=== PATIENT | male | born 1945 | race Caucasian/White ===

== ENCOUNTER 2018-07-01 09:16 | Emergency (ER) | payer BC ==
[2018-07-01] MEDS ORDERED: Famotidine TAB* 20 MG PO ONE (09:43)
--- NOTE | 2018-07-01 10:04 | ED ---
Abdominal Pain/Male - HPI Summary HPI Summary: Pt is a 72 y/o male who presents to the ED c/o abdominal pain. He c/o abdominal pain and upper abdominal bloating. The pain is described as discomfort and is rated a 2/10 in severity. He denies any back pain, N/V/D, constipation, or urinary retention. Pt has a hx of HTN and AFib, and states that his BP at home was 184/82. His BP normally is about 135/70. Pt denies any prior abdominal surgeries. FHx HTN. Pt is not Coumadin. - History of Current Complaint Chief Complaint: EDHypertension Stated Complaint: BLOATED/UPPER ABD PROBLEMS/HIGH BP PER PT Time Seen by Provider: 07/01/18 09:43 Hx Obtained From: Patient Onset/Duration: Gradual Onset, Still Present Timing: Constant Severity Currently: Mild Pain Intensity: 2 Pain Scale Used: 0-10 Numeric Location: Other - upper abdomen Radiates: No Character: Other: - discomfort Associated Signs And Symptoms: Positive: Other - bloating. Negative: Back Pain , Constipation, Urinary Symptoms, Nausea, Vomiting, Diarrhea - Allergies/Home Medications Allergies/Adverse Reactions: Allergies Allergy/AdvReac Type Severity Reaction Status Date / Time No Known Allergies Allergy Verified 07/01/18 09:22 PMH/Surg Hx/FS Hx/Imm Hx Cardiovascular History: Reports: Hx Atrial Fibrillation, Hx Hypertension Respiratory History: Denies: Hx Asthma GI History: Reports: Hx Gastroesophageal Reflux Disease Musculoskeletal History: Reports: Hx Gout Neurological History: Denies: Hx Seizures Infectious Disease History: No Infectious Disease History: Denies: Traveled Outside the [place] in Last 30 Days - Family History Known Family History: Positive: Cardiac Disease - [place] - father 72 y/o, Hypertension - Social History Alcohol Use: None Hx Substance Use: No Substance Use Type: Reports: None Hx Tobacco Use: No Smoking Status (MU): Never Smoked Tobacco Review of Systems Positive: Abdominal Pain, Other - upper abdominal bloating, NEGATIVE: constipation. 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 Head/face: normal Eyes: EOMI, IBETH ENT: mucous membranes moist Neck: supple, non-tender Respiratory: CTA, breath sounds present Cardiovascular: RRR, pulses symmetrical Abdomen: no RUQ tenderness, mild-moderate LLQ tenderness, soft, negative Taylor s sign, negative sonographic [place] sign Bowel Sounds: present Musculoskeletal: normal, strength/ROM intact Neuro: normal, sensory motor intact, A&Ox3 Triage Information Reviewed: Yes Vital Signs On Initial Exam: Initial Vitals Temp Pulse Resp BP Pulse Ox 97.8 F 50 18 181/74 97 07/01/18 09:21 07/01/18 09:21 07/01/18 09:21 07/01/18 09:21 07/01/18 09:21 Vital Signs Reviewed: Yes Diagnostics - Vital Signs Vital Signs Temp Pulse Resp BP Pulse Ox 07/01/18 09:21 97.8 F 50 18 181/74 97 - Laboratory Result Diagrams: 07/01/18 10:18 07/01/18 10:18 Lab Statement: Any lab studies that have been ordered have been reviewed, and results considered in the medical decision making process. - CT CT A/P CT Interpretation Completed By: Radiologist Summary of CT Findings: Potential stones or sludge at the gallbladder without additional CT abnormality of the gallbladder. Correlate with clinical assessment and consider ultrasound for further evaluation if deemed appropriate. Small nonobstructing stone midpole RIGHT kidney. Colonic diverticulosis without findings of acute diverticulitis. Normal appendix documented. Negative for ascites. ED physician reviewed radiology report. - Ultrasound No standard instances Ultrasound Interpretation Completed By: ED Physician Summary of Ultrasound Findings: US performed at bedside by ED physician: limited abdominal US, no AAA, positive gallstones, negative sonographic Taylor' s sign, no hydronephrosis - EKG 9:46 Cardiac Rate: Bradycardia - 50 bpm EKG Rhythm: Sinus Bradycardia ST Segment: Normal Summary of EKG Findings: Nl axis, nl intervals Re-Evaluation - Re-Evaluation First Eval Re-Evaluation Time: 11:11 Change: Improved Comment: Discussed CT results and plan of care. Pt feels fine. His systolic BP is now in the 150s. Abdominal Pain Male Course/Dx - Course Course Of Treatment: Patient with diffuse mild bloating feeling and some left lower quadrant pain. CT is negative for any acute pathology. Blood pressure had been elevated on arrival and came down into the 150s without treatment. He is feeling better here and be discharged to follow up closely with his primary care physician. - Diagnoses Differential Diagnosis/HQI/PQRI: ACS, Appendicitis, Bowel Obstruction, Constipation, Diverticulitis, Gall Bladder Disease, Renal Colic, Ureteral Stone Provider Diagnoses: Abdominal pain, Elevated blood pressure reading Discharge - Sign-Out/Discharge Documenting (check all that apply): Patient Departure - Discharge Patient Received Moderate/Deep Sedation with Procedure: No - Discharge Plan Condition: Improved Disposition: HOME Prescriptions: Dicyclomine CAP* [Bentyl CAP*] 10 mg PO TID PRN #30 cap PRN Reason: abdominal cramping Patient Education Materials: Acute Abdominal Pain (ED), Gas and Bloating (ED) Referrals: Otto Gomez MD [Primary Care Provider] - Additional Instructions: Take MiraLAX as needed for bloating. Return with fever, increased pain, new symptoms, worse or other concerns. Follow-up with your doctor for abdominal pain and also for recheck of blood pressure. - Billing Disposition and Condition Condition: IMPROVED Disposition: Home - Attestation Statements Document Initiated by Scribe: Yes Documenting Scribe: Susan Kelly Provider For Whom Scribe is Documenting (Include Credential): David John MD Scribe Attestation: Susan Walden, scribed for David John MD on 07/01/18 at 1806. Scribe Documentation Reviewed: Yes Provider Attestation: The documentation as recorded by the Susan cabrera accurately reflects the service I personally performed and the decisions made by me, David John MD Status of Scribe Document: Viewed
[2018-07-01] MEDS ORDERED: NS 0.9% 1000 ML** 1,000 ML IV ONE (10:11)
[2018-07-01] MEDS ORDERED: Morphine 4 MG/ML VIAL (1 ml) 4 MG/ML VIAL IV ONE (10:12)
[2018-07-01 10:25] LABS: ABS Basophils 0 10^3/ul (0-0.2); ABS Eosinophils 0.1 10^3/ul (0-0.6); ABS Lymphocytes 0.7 10^3/ul (1.0-4.8); ABS Monocytes 0.4 10^3/ul (0-0.8); ABS Neutrophils 8.9 10^3/ul (1.5-7.7); ABS Nucleated RBC 0 10^3/ul; Eosinophil % 1.4 %; Hematocrit 45 % (36-46); Hemoglobin 15.3 g/dL (14.0-18.0); Lymphocyte % 6.9 %; Mean Corpuscular HGB Conc 34 g/dL (31-36); Mean Corpuscular Hemoglobin 30 pg (27-31); Mean Corpuscular Volume 88 fL (80-94); Mean Platelet Volume 6.8 fL (7.4-10.4); Nucleated Red Blood Cells % 0.1; Platelet Count 163 10^3/uL (150-450); Red Blood Count 5.09 10^6 /uL (4.18-5.48); Red Cell Distribution Width 15 % (10.5-15); White Blood Count 10.2 10^3/uL (3.5-10.8)
[2018-07-01 10:31] LABS: INR 3.09 (0.82-1.09)
[2018-07-01 10:42] LABS: Albumin 4.2 g/dL (3.2-5.2); Albumin/Globulin Ratio 1.6 (1-3); BUN/Creatinine Ratio 18.8 (8-20); Calcium 9.7 mg/dL (8.6-10.3); EGFR African American 93.4 (>60); EGFR Non-African American 77.2 (>60); Globulin 2.7 g/dL (2-4); Potassium 4.2 mmol/L (3.5-5.0); Total Protein 6.9 g/dL (6.4-8.9)
[2018-07-01 11:57] VITALS: BP 162/80
== END 2018-07-01 11:55 | disposition home or self-care (01) ==
LOC: ED 09:16
DX: R10.9 Unspecified abdominal pain (principal); K21.9 Gastro-esophageal reflux disease without esophagitis; I10 Essential (primary) hypertension; I48.91 Unspecified atrial fibrillation
CPT/HCPCS: 36415; 74176; 80053; 83605; 83690; 85025; 85610; 86140; 93005; 96361; 96374; 99283; A9270-GY; J2270

== ENCOUNTER 2018-09-03 07:30 | Inpatient (IN) | payer BC ==
[2018-09-18] MEDS ORDERED: Buffered Lidocaine 1% SYRIN* 1 ML/SYRINGE INTRADERM ONE (13:59)
[2018-09-19] MEDS ORDERED: Lactated Ringers 1000 ML Bag* 1,000 ML IV SCH ×2 (06:00→13:00)
[2018-09-19] MEDS ORDERED: Gabapentin CAP(*) 300 MG PO ONE (06:00)
[2018-09-19] MEDS ORDERED: Acetaminophen TAB* 325 MG PO ONE (06:00)
--- OUTSIDE RECORDS SUMMARY | 2018-09-19 06:44 | XMS REPORT | Continuity of Care Document ---
:1945 External Reference #:[id number] Author Name Patience Fernández Care Team Providers Name Role Phone Lan Gomez M.D. Primary Care Physician Unavailable Payers Date Identification Numbers Payment Provider Subscriber Effective: 2012 Policy Number: [id number] [facility] Elzbieta Silva PayID: [id number] [address] [place] [address] Problems Active Problems Provider Date Essential hypertension Natalie Merritt M.D. Onset: 12/31/2012 Atrial fibrillation Natalie Merritt M.D. Onset: 12/31/2012 Palpitations Natalie Merritt M.D. Onset: 12/31/2012 Abnormal results of cardiovascular function Natalie Merritt M.D. Onset: 2013 studies Obesity NADIA Abrams Onset: 07/29/2013 Hyperlipidemia Natalie Merritt M.D. Onset: 06/22/2014 Persistent atrial fibrillation Natalie Merritt M.D. Onset: 12/22/2014 Idiopathic gout, unspecified site Natalie Merritt M.D. Onset: 03/14/2015 Other cardiomyopathies Natalie Merritt M.D. Onset: 03/14/2015 Disturbance in sleep behavior Jada Pierce MD Onset: 04/06/2015 Obstructive sleep apnea syndrome Jada Pierce MD Onset: 05/26/2015 Paroxysmal atrial fibrillation Natalie Merritt M.D. Onset: 07/11/2015 Body mass index 30+ - obesity Natalie Merritt M.D. Onset: 07/11/2015 Localized, primary osteoarthritis of the Rashad F MD Suzy Onset: 2018 pelvic region and thigh Aneurysm of thoracic aorta Natalie Merritt M.D. Onset: 08/09/2017 Family History Date Family Member(s) Observation Comments General [place] Father [place] age 72 Mother Alive at age 94 Siblings 4 Sister w/DM Social History Type Date Description Comments Sex Unknown Marital Status Lives With Occupation Medically Retired Tobacco Use Start: Unknown Never Smoked Cigarettes Smoking Status Reviewed: 08/28/18 Never Smoked Cigarettes ETOH Use Denies alcohol use Tobacco Use Start: Unknown Patient has never smoked Recreational Drug Use Denies Drug Use Exercise Type/Frequency Exercises regularly house work indoor- outdoor Allergies, Adverse Reactions, Alerts Description No Known Drug Allergies Medications Active Medications SIG Qnty Indications Ordering Date Provider Amiodarone HCL take 1 tablet by 90tabs I48.0 Natalie Merritt, 03/25/2018 100mg mouth daily M.D. Tablets Diltiazem HCL ER 1 by mouth every day 90caps I48.0 Natalie Merritt, 2016 Coated Beads as directed by md Henry 120mg Caps ER 24HR Carvedilol 1 by mouth twice a 180tabs Natalie Merritt, 04/02/2012 25mg Tablets day M.D. Furosemide 1 by mouth every 45tabs Natalie Merritt, 02/04/2012 20mg Tablets over day alternating M.D. with spironolactone Spironolactone 1 tab by mouth every 45tabs Natalie Merritt, 01/07/2012 25mg other day M.D. Tablets alternating with furosemide Tadalafil 1/2 or 1 tab as Unknown 20mg Tablets needed Pravastatin Sodium 1 by mouth every day Unknown 20mg Tablets Colchicine 1 by mouth every day Unknown 0.6mg or as needed Capsules Allopurinol 1 by mouth every day Unknown 300mg Tablets Acetaminophen 2 tablets by mouth Unknown 325mg every 6 hours as Tablets needed for pain/fever Glucosamine Sulfate 1 tablet po b.i.d Unknown 1000mg Tablets Coumadin as directed Taking 200tabs Lan Gomez, 1mg Tablets 4 mg 6 days per week M.D. and 3mg 1 day per week adjustment Dr. Gomez Aspirin 81 po qd Unknown 81mg Tablets DR History Medications Amiodarone HCL 1/2 tab by 45tabs I48.0 Natalie Merritt, 08/23/2016 - 200mg mouth every M.D. 03/25/2018 Tablets day. Multaq 1 by mouth 60tabs I48.0 Natalie Merritt, 08/03/2016 - 400mg Tablets twice a day M.D. 08/23/2016 Amlodipine Besylate 1 by mouth 90tabs I10 Natalie Merritt, 06/26/2013 - every day PT Is M.D. 08/03/2016 2.5mg Tablets Not Taking 08/23/16 Propafenone HCL ER 1 by mouth 270caps Natalie Merritt, 06/08/2013 - three times a M.D. 12/22/2014 225mg Caps ER 12HR day Propafenone HCL 1 po tid 270tabs Natalie Merritt, 07/23/2012 - 150mg M.D. 06/08/2013 Tablets Amlodipine Besylate 1 po qd 90tabs Natalie Merritt, 04/02/2012 - M.D. 12/31/2012 5mg Tablets Multaq 1 po bid 180tabs Natalie Merritt, 03/11/2012 - 400mg Tablets M.D. 07/23/2012 Carvedilol 1 po bid 180tabs Natalie Merritt, 02/04/2012 - 12.5mg M.D. 04/02/2012 Tablets Diovan 1 po qd 90tabs Natalie Merritt, 02/04/2012 - 160mg Tablets M.D. 12/31/2012 Amlodipine Besylate 1 po qd 90tabs Natalie Merritt, 01/07/2012 - M.D. 04/02/2012 10mg Tablets Colcrys 1 by mouth Unknown - 0.6mg Tablets every day prn 07/10/2015 for gout Amiodarone HCL 1/2 tablet po Ezequiel Machado, - 200mg daily, Pt is 07/17/2015 Tablets taking a whole 100 mg tablet Medications Administered in Office Medication SIG Qnty Indications Ordering Provider Date Inj, Regadenoson, 0.1 MG Natalie Merritt M.D. 06/16/2013 Injection Technetium TC 99M Tetrofosmin, Per Natalie Merritt M.D. 06/16/2013 Unit Dose Up To 40 Millicuries Injection Immunizations CPT Code Status Date Vaccine Lot # [id number] Given 04/06/2015 Fluvirin Im 3Yrs And Older Vital Signs Date Vital Result Comment 08/28/2018 12:47pm Height 66 inches 5'6" Weight 218.00 lb w/ shoes Heart Rate 58 /min BP Systolic Sitting 140 mmHg Rue reg cuff BP Diastolic Sitting 78 mmHg Rue reg cuff BMI (Body Mass Index) 35.2 kg/m2 08/14/2018 9:22am Height 66 inches 5'6" Weight 219.50 lb Heart Rate 72 /min BP Systolic 124 mmHg BP Diastolic 74 mmHg Respiratory Rate 12 /min Pain Level 8 BMI (Body Mass Index) 35.4 kg/m2 03/25/2018 8:37am Height 66 inches 5'6" Weight 221.00 lb Heart Rate 52 /min BP Systolic 130 mmHg Lue reg cuff sitting BP Diastolic 85 mmHg Lue reg cuff sitting BP Systolic Standing 120 mmHg Lue reg cuff BP Diastolic Standing 85 mmHg Lue reg cuff Respiratory Rate 17 /min O2 % BldC Oximetry 98 % BMI (Body Mass Index) 35.7 kg/m2 08/09/2017 7:59am Height 66 inches 5'6" Weight 218.00 lb with shoes Heart Rate 50 /min BP Systolic Sitting 100 mmHg Lue lg cuff BP Diastolic Sitting 70 mmHg Lue lg cuff BP Systolic Standing 118 mmHg Lue lg cuff BP Diastolic Standing 78 mmHg Lue lg cuff Respiratory Rate 16 /min O2 % BldC Oximetry 97 % at room air BMI (Body Mass Index) 35.2 kg/m2 Ejection Fraction 55-60% date 04/13/15 ECHO 12/25/2016 2:45pm Height 66 inches 5'6" Weight 214.50 lb with shoes Heart Rate 54 /min BP Systolic Sitting 120 mmHg rue reg cuff BP Diastolic Sitting 74 mmHg rue reg cuff BP Systolic Standing 130 mmHg rue reg cuff BP Diastolic Standing 70 mmHg rue reg cuff Respiratory Rate 16 /min BMI (Body Mass Index) 34.6 kg/m2 Ejection Fraction 55-60% date 04/13/15 echo 10/09/2016 9:18am Height 66 inches 5'6" Weight 219.00 lb with shoes Heart Rate 56 /min BP Systolic Sitting 110 mmHg Rue lg cuff BP Diastolic Sitting 64 mmHg Rue lg cuff BP Systolic Standing 120 mmHg Rue lg cuff BP Diastolic Standing 70 mmHg Rue lg cuff Respiratory Rate 17 /min BMI (Body Mass Index) 35.3 kg/m2 Ejection Fraction 55-60% 04/13/2015-echo 08/23/2016 8:00am Height 66 inches 5'6" Weight 215.00 lb w/ shoes Heart Rate 72 /min BP Systolic Sitting 100 mmHg Lue, lg cuff BP Diastolic Sitting 70 mmHg Lue, lg cuff BP Systolic Standing 94 mmHg Lue BP Diastolic Standing 74 mmHg Lue Respiratory Rate 16 /min BMI (Body Mass Index) 34.7 kg/m2 Ejection Fraction 55-60% as of 04/2015 echo 08/03/2016 10:53am Height 66 inches 5'6" Weight 216.50 lb with shoes Heart Rate 160 /min BP Systolic Sitting 132 mmHg LA reg cuff BP Diastolic Sitting 88 mmHg LA reg cuff BP Systolic Standing 128 mmHg LA reg cuff BP Diastolic Standing 86 mmHg LA reg cuff BMI (Body Mass Index) 34.9 kg/m2 Ejection Fraction 55% - 60% echo 04/13/15 04/10/2016 10:42am Height 66 inches 5'6" Weight 216.00 lb w/o shoes BP Systolic Sitting 130 mmHg Rue, reg cuff BP Diastolic Sitting 84 mmHg Rue, reg cuff BP Systolic Standing 124 mmHg Rue BP Diastolic Standing 76 mmHg Rue Respiratory Rate 16 /min BMI (Body Mass Index) 34.9 kg/m2 Ejection Fraction 55-60% as of 04/13/15 echo 10/17/2015 8:36am Height 66 inches 5'6" Weight 215.00 lb w/ shoes Heart Rate 56 /min BP Systolic Sitting 132 mmHg Rue, reg cuff BP Diastolic Sitting 80 mmHg Rue, reg cuff BP Systolic Standing 140 mmHg Rue BP Diastolic Standing 86 mmHg Rue Respiratory Rate 16 /min BMI (Body Mass Index) 34.7 kg/m2 Ejection Fraction 55-60% as of 04/13/15 echo 07/11/2015 7:58am Height 66 inches 5'6" Weight 213.00 lb Heart Rate 64 /min BP Systolic Sitting 132 mmHg Ra lrg cuff BP Diastolic Sitting 70 mmHg Ra lrg cuff BP Systolic Standing 136 mmHg Ra lrg cuff BP Diastolic Standing 72 mmHg Ra lrg cuff Respiratory Rate 15 /min BMI (Body Mass Index) 34.4 kg/m2 Ejection Fraction 55-60% 04/13/15 05/26/2015 8:39am Height 66 inches 5'6" Weight 210.00 lb Heart Rate 48 /min BP Systolic 138 mmHg BP Diastolic 88 mmHg O2 % BldC Oximetry 97 % BMI (Body Mass Index) 33.9 kg/m2 04/06/2015 10:38am Height 66 inches 5'6" Weight 210.00 lb Heart Rate 55 /min BP Systolic Sitting 148 mmHg BP Diastolic Sitting 90 mmHg Respiratory Rate 22 /min O2 % BldC Oximetry 97 % BMI (Body Mass Index) 33.9 kg/m2 Neck Circumference in inches 18 03/14/2015 9:52am Height 66 inches 5'6" Weight 208.00 lb without shoes Heart Rate 60 /min BP Systolic 156 mmHg L arm reg cuff BP Diastolic 90 mmHg L arm reg cuff BP Systolic Sitting 156 mmHg BP Diastolic Sitting 90 mmHg BP Systolic Standing 148 mmHg BP Diastolic Standing 86 mmHg Respiratory Rate 18 /min BMI (Body Mass Index) 33.6 kg/m2 Ejection Fraction 30-35% 12/1602/04/2015 10:48am Height 66 inches 5'6" Weight 214.00 lb with shoes Heart Rate 48 /min BP Systolic Sitting 122 mmHg LA lg cuff BP Diastolic Sitting 84 mmHg LA lg cuff BP Systolic Standing 130 mmHg LA lg cuff BP Diastolic Standing 78 mmHg LA lg cuff Respiratory Rate 16 /min BMI (Body Mass Index) 34.5 kg/m2 Ejection Fraction 50% date 02/03/14 ECHO 01/05/2015 3:37pm Height 66 inches 5'6" Weight 214.00 lb Heart Rate 60 /min BP Systolic Sitting 132 mmHg LA large cuff BP Diastolic Sitting 72 mmHg LA large cuff BP Systolic Standing 128 mmHg LA BP Diastolic Standing 80 mmHg LA Respiratory Rate 14 /min BMI (Body Mass Index) 34.5 kg/m2 12/22/2014 1:57pm Height 66 inches 5'6" Weight 211.00 lb Heart Rate 88 /min irregular BP Systolic Sitting 136 mmHg LA large cuff BP Diastolic Sitting 88 mmHg LA large cuff BP Systolic Standing 128 mmHg LA BP Diastolic Standing 86 mmHg LA Respiratory Rate 18 /min BMI (Body Mass Index) 34.1 kg/m2 Ejection Fraction 50% 02/03/14 12/21/2014 11:50am Height 66 inches 5'6" Heart Rate 112 /min BP Systolic Sitting 122 mmHg R arm reg cuff BP Diastolic Sitting 80 mmHg R arm reg cuff BP Systolic Standing 118 mmHg BP Diastolic Standing 70 mmHg Respiratory Rate 18 /min 12/14/2014 10:23am Height 66 inches 5'6" Weight 213.56 lb without shoes Heart Rate 100 /min irreg BP Systolic Sitting 110 mmHg Ra reg cuff BP Diastolic Sitting 80 mmHg Ra reg cuff BP Systolic Standing 112 mmHg Ra reg cuff BP Diastolic Standing 82 mmHg Ra reg cuff Respiratory Rate 18 /min BMI (Body Mass Index) 34.5 kg/m2 Ejection Fraction 50% date 02/03/14 ECHO 12/14/2014 10:16am Height 66 inches 5'6" 06/22/2014 8:39am Height 66 inches 5'6" Weight 201.00 lb w/o shoes Heart Rate 54 /min reg BP Systolic Sitting 132 mmHg Ra, reg cuff BP Diastolic Sitting 72 mmHg Ra, reg cuff BP Systolic Standing 124 mmHg Ra BP Diastolic Standing 70 mmHg Ra Respiratory Rate 18 /min BMI (Body Mass Index) 32.4 kg/m2 02/19/2014 8:47am Height 66 inches 5'6" Weight 214.00 lb with shoes Heart Rate 51 /min BP Systolic Sitting 132 mmHg LA, reg cuff BP Diastolic Sitting 84 mmHg LA, reg cuff BP Systolic Standing 126 mmHg LA BP Diastolic Standing 82 mmHg LA Respiratory Rate 16 /min BMI (Body Mass Index) 34.5 kg/m2 02/01/2014 8:21am Height 66 inches 5'6" Weight 218.00 lb with shoes Heart Rate 68 /min irregular BP Systolic Sitting 122 mmHg right arm reg cuff BP Diastolic Sitting 76 mmHg right arm reg cuff BP Systolic Standing 124 mmHg right arm reg cuff BP Diastolic Standing 78 mmHg right arm reg cuff Respiratory Rate 18 /min BMI (Body Mass Index) 35.2 kg/m2 07/29/2013 8:28am Height 66 inches 5'6" Weight 218.00 lb Without shoes Heart Rate 62 /min BP Systolic Sitting 134 mmHg R arm , Large cuff BP Diastolic Sitting 82 mmHg R arm , Large cuff BP Systolic Standing 128 mmHg BP Diastolic Standing 80 mmHg Respiratory Rate 18 /min BMI (Body Mass Index) 35.2 kg/m2 06/26/2013 9:22am Height 66 inches 5'6" Weight 216.00 lb Heart Rate 64 /min BP Systolic Sitting 152 mmHg LA reg cuff BP Diastolic Sitting 90 mmHg LA reg cuff BP Systolic Standing 144 mmHg LA BP Diastolic Standing 88 mmHg LA Respiratory Rate 18 /min BMI (Body Mass Index) 34.9 kg/m2 06/08/2013 8:54am Height 66 inches 5'6" Weight 215.00 lb Heart Rate 60 /min BP Systolic Sitting 146 mmHg LA large cuff BP Diastolic Sitting 88 mmHg LA large cuff BP Systolic Standing 144 mmHg LA BP Diastolic Standing 90 mmHg LA Respiratory Rate 16 /min BMI (Body Mass Index) 34.7 kg/m2 12/31/2012 9:58am Height 66.5 inches 5'6.50" Weight 218.00 lb Heart Rate 60 /min BP Systolic Sitting 152 mmHg Ra reg cuff BP Diastolic Sitting 88 mmHg Ra reg cuff BP Systolic Standing 142 mmHg Ra BP Diastolic Standing 82 mmHg Ra BMI (Body Mass Index) 34.7 kg/m2 Results Test Date Facility Test Result H/L Range Note CBC Auto Diff 07/31/2018 [facility] White Blood 6.4 10^3/uL N 3.5-10.[address] [place] [address] [phone] Red Blood Count 5.15 10^6/uL N 4.18-5.48 Hemoglobin 15.2 g/dL N 14.0-18.0 Hematocrit 45 % N 42-52 Mean Corpuscular Volume 88 fL N 80-94 Mean Corpuscular Hemoglobin 30 pg N 27-31 Mean Corpuscular HGB Conc 34 g/dL N 31-36 Red Cell Distribution Width 15 % N 10.5-15 Platelet Count 161 10^3/uL N 150-450 Mean Platelet Volume 7.7 fL N 7.4-10.4 Abs Neutrophils 4.2 10^3/uL N 1.5-7.7 Abs Lymphocytes 1.3 10^3/uL N 1.0-4.8 Abs Monocytes 0.4 10^3/uL N 0-0.8 Abs Eosinophils 0.4 10^3/uL N 0-0.6 Abs Basophils 0.1 10^3/uL N 0-0.2 Abs Nucleated RBC 0.0 10^3/uL Granulocyte % 65.3 % Lymphocyte % 20.9 % Monocyte % 7.0 % Eosinophil % 6.0 % Basophil % 0.8 % Nucleated Red Blood Cells % 0.1 Comp Metabolic Panel 07/31/2018 [facility] Sodium 138 mmol/L N 135-145 [address] [place] [address] [phone] Potassium 5.0 mmol/L N 3.5-5.0 Chloride 103 mmol/L N 101-111 Co2 Carbon Dioxide 29 mmol/L N 22-32 Anion Gap 6 mmol/L N 2-11 Glucose 102 mg/dL High 70-100 Blood Urea Nitrogen 21 mg/dL N 6-24 Creatinine 0.98 mg/dL N 0.67-1.17 BUN/Creatinine Ratio 21.4 High 8-20 Calcium 9.3 mg/dL N 8.6-10.3 Total Protein 6.6 g/dL N 6.4-8.9 Albumin 4.2 g/dL N 3.2-5.2 Globulin 2.4 g/dL N 2-4 Albumin/Globulin Ratio 1.8 N 1-3 Total Bilirubin 0.90 mg/dL N 0.2-1.0 Alkaline Phosphatase 85 U/L N 34-104 Alt 20 U/L N 7-52 Ast 18 U/L N 13-39 Egfr Non- 75.2 >60 Egfr 91.0 >60 1 Lipid Profile 07/31/2018 [facility] Triglycerides 179 mg/dL 2 (Trig/Chol/HDL) [address] [place] [address] [phone] Cholesterol 239 mg/dL 3 HDL Cholesterol 36.5 mg/dL 4 LDL Cholesterol 167 mg/dL 5 Laboratory test 07/31/2018 [facility] Uric Acid 4.9 mg/dL N 4.4-7.6 6 finding [address] [place] [address] [phone] TSH (Thyroid Stim Horm) 3.25 mcIU/mL N 0.34-5.60 7 Comp Metabolic Panel 05/15/2018 [facility] Sodium 138 mmol/L N 135-145 [address] [place] [address] [phone] Potassium 4.5 mmol/L N 3.5-5.0 Chloride 103 mmol/L N 101-111 Co2 Carbon Dioxide 30 mmol/L N 22-32 Anion Gap 5 mmol/L N 2-11 Glucose 97 mg/dL N 70-100 Blood Urea Nitrogen 18 mg/dL N 6-24 Creatinine 0.97 mg/dL N 0.67-1.17 BUN/Creatinine Ratio 18.6 N 8-20 Calcium 8.9 mg/dL N 8.6-10.3 Total Protein 6.3 g/dL Low 6.4-8.9 Albumin 4.2 g/dL N 3.2-5.2 Globulin 2.1 g/dL N 2-4 Albumin/Globulin Ratio 2.0 N 1-3 Total Bilirubin 0.90 mg/dL N 0.2-1.0 Alkaline Phosphatase 72 U/L N 34-104 Alt 16 U/L N 7-52 Ast 16 U/L N 13-39 Egfr Non- 76.3 >60 Egfr 92.3 >60 8 Thyroid Panel 05/15/2018 [facility] Free T4 1.10 ng/dL N 0.61- 1.12 [address] [place] [address] [phone] Thyroxine 11.58 g/dL N 6.09-12.23 TSH (Thyroid Stimulating Horm) 2.78 mcIU/mL N 0.34-5.60 Comp Metabolic Panel 10/21/2017 [facility] Sodium 142 mmol/L N 135-145 [address] [place] [address] [phone] Potassium 4.8 mmol/L N 3.5-5.0 Chloride 106 mmol/L N 101-111 Co2 Carbon Dioxide 30 mmol/L N 22-32 Anion Gap 6 mmol/L N 2-11 Glucose 117 mg/dL High 70-100 Blood Urea Nitrogen 21 mg/dL N 6-24 Creatinine 0.92 mg/dL N 0.67-1.17 BUN/Creatinine Ratio 22.8 High 8-20 Calcium 9.1 mg/dL N 8.6-10.3 Total Protein 6.3 g/dL Low 6.4-8.9 Albumin 4.0 g/dL N 3.2-5.2 Globulin 2.3 g/dL N 2-4 Albumin/Globulin Ratio 1.7 N 1-3 Total Bilirubin 1.10 mg/dL High 0.2-1.0 Alkaline Phosphatase 71 U/L N 34-104 Alt 16 U/L N 7-52 Ast 15 U/L N 13-39 Egfr Non- 81.1 >60 Egfr 98.1 >60 9 Laboratory test 10/21/2017 [facility] Thyroxine 11.93 g/mL N 6.09-12.[address] [place] [address] [phone] TSH (Thyroid Stim Horm) 3.37 mcIU/mL N 0.34-5.60 11 Free T4 (Free Thyroxine) 1.18 ng/dL High 0.61-1.12 12 CBC Auto Diff 05/29/2017 [facility] White Blood 7.2 10^3/uL N 3.5-10.[address] [place] [address] [phone] Red Blood Count 5.09 10^6/uL N 4.0-5.4 Hemoglobin 15.4 g/dL N 14.0-18.0 Hematocrit 46 % N 42-52 Mean Corpuscular Volume 91 fL N 80-94 Mean Corpuscular Hemoglobin 30 pg N 27-31 Mean Corpuscular HGB Conc 34 g/dL N 31-36 Red Cell Distribution Width 15 % N 10.5-15 Platelet Count 178 10^3/uL N 150-450 Mean Platelet Volume 8.0 um3 N 7.4-10.4 Abs Neutrophils 5.7 10^3/uL N 1.5-7.7 Abs Lymphocytes 0.9 10^3/uL Low 1.0-4.8 Abs Monocytes 0.4 10^3/uL N 0-0.8 Abs Eosinophils 0.2 10^3/uL N 0-0.6 Abs Basophils 0 10^3/uL N 0-0.2 Abs Nucleated RBC 0 10^3/uL Granulocyte % 78.3 % N 38-83 Lymphocyte % 12.8 % Low 25-47 Monocyte % 5.4 % N 0-7 Eosinophil % 3.2 % N 0-6 Basophil % 0.3 % N 0-2 Nucleated Red Blood Cells % 0 Inr/Protime 05/29/2017 [facility] Inr 3.47 High 0.77-1.02 [address] [place] [address] [phone] Comp Metabolic 05/29/2017 [facility] Sodium 138 mmol/L Low 139 -[address] [place] [address] [phone] Potassium 4.4 mmol/L N 3.5-5.0 Chloride 100 mmol/L Low 101-111 Co2 Carbon Dioxide 29 mmol/L N 22-32 Anion Gap 9 mmol/L N 2-11 Glucose 96 mg/dL N 70-100 Blood Urea Nitrogen 23 mg/dL N 6-24 Creatinine 0.92 mg/dL N 0.67-1.17 BUN/Creatinine Ratio 25.0 High 8-20 Calcium 9.2 mg/dL N 8.6-10.3 Total Protein 6.9 g/dL N 6.4-8.9 Albumin 4.4 g/dL N 3.2-5.2 Globulin 2.5 g/dL N 2-4 Albumin/Globulin Ratio 1.8 N 1-3 Total Bilirubin 1.00 mg/dL N 0.2-1.0 Alkaline Phosphatase 73 U/L N 34-104 Alt 18 U/L N 7-52 Ast 17 U/L N 13-39 Egfr Non- 81.3 >60 Egfr 104.6 >60 13 Laboratory test 05/29/2017 [facility] Uric Acid 4.6 mg/dL N 4.4-7.6 [address] [place] [address] [phone] TSH (Thyroid Stim Horm) 2.94 mcIU/mL N 0.34-5.60 15 Free T4 (Free Thyroxine) 1.19 ng/dL High 0.61-1.12 16 T3 Total 1.13 ng/mL N 0.87-1.78 17 Thyroid Panel 12/25/2016 [facility] Free T4 (Free <pending> [address] Thyroxine) [place] [address] [phone] Thyroxine <pending> TSH (Thyroid Stim Horm) <pending> Basic Metabolic Panel 09/19/2016 [facility] Sodium 137 mmol/L N 133-[address] [place] [address] [phone] Potassium 5.0 mmol/L N 3.5-5.0 Chloride 104 mmol/L N 101-111 Co2 Carbon Dioxide 26 mmol/L N 22-32 Anion Gap 7 mmol/L N 2-11 Glucose 111 mg/dL High 70-100 Blood Urea Nitrogen 19 mg/dL N 6-24 Creatinine 0.81 mg/dL N 0.67-1.17 BUN/Creatinine Ratio 23.5 High 8-20 Calcium 9.3 mg/dL N 8.6-10.3 Egfr Non- 94.2 N >60 Egfr 121.2 N >60 18 Inr/Protime 09/19/2016 [facility] Inr 4.57 High 0.89-1.11 [address] [place] [address] [phone] Comp Metabolic 08/27/2016 [facility] Sodium 138 mmol/L N 133- 145 Panel [address] [place] [address] [phone] Potassium 5.2 mmol/L High 3.5-5.0 Chloride 105 mmol/L N 101-111 Co2 Carbon Dioxide 29 mmol/L N 22-32 Anion Gap 4 mmol/L N 2-11 Glucose 107 mg/dL High 70-100 Blood Urea Nitrogen 19 mg/dL N 6-24 Creatinine 0.97 mg/dL N 0.67-1.17 BUN/Creatinine Ratio 19.6 N 8-20 Calcium 9.2 mg/dL N 8.6-10.3 Total Protein 6.3 g/dL Low 6.4-8.9 Albumin 3.8 g/dL N 3.2-5.2 Globulin 2.5 g/dL N 2-4 Albumin/Globulin Ratio 1.5 N 1-3 Total Bilirubin 0.80 mg/dL N 0.2-1.0 Alkaline Phosphatase 56 U/L N 34-104 Alt 13 U/L N 7-52 Ast 13 U/L N 13-39 Egfr Non- 76.5 N >60 Egfr 98.4 N >60 19 Inr/Protime 08/27/2016 [facility] Inr 1.66 High 0.89-1.11 [address] [place] [address] [phone] Laboratory test 08/03/2016 [facility] Magnesium 1.9 mg/dL N 1.9-2.7 20 finding [address] [place] [address] [phone] Comp Metabolic 08/03/2016 [facility] Sodium 138 N 133-[address] mmol/[place] [address] [phone] Potassium 4.5 mmol/L N 3.5-5.0 Chloride 103 mmol/L N 101-111 Co2 Carbon Dioxide 28 mmol/L N 22-32 Anion Gap 7 mmol/L N 2-11 Glucose 109 mg/dL High 70-100 Blood Urea Nitrogen 19 mg/dL N 6-24 Creatinine 0.92 mg/dL N 0.67-1.17 BUN/Creatinine Ratio 20.7 High 8-20 Calcium 9.3 mg/dL N 8.6-10.3 Total Protein 6.5 g/dL N 6.4-8.9 Albumin 4.0 g/dL N 3.2-5.2 Globulin 2.5 g/dL N 2-4 Albumin/Globulin Ratio 1.6 N 1-3 Total Bilirubin 2.10 mg/dL High 0.2-1.0 Alkaline Phosphatase 56 U/L N 34-104 Alt 21 U/L N 7-52 Ast 19 U/L N 13-39 Egfr Non- 81.3 N >60 Egfr 104.6 N >60 21 Inr/Protime 08/03/2016 [facility] Inr 2.25 High 0.89-1.[address] [place] [address] [phone] Inr/Protime 12/16/2014 [facility] Inr 1.98 High 0.78-1.[address] [place] [address] [phone] Laboratory test 12/16/2014 [facility] Erythrocyte Sed 9 mm/Hr N 0-[address] [place] [address] [phone] Laboratory test 12/14/2014 [facility] Uric Acid 8.8 High 4.4- 7.6 [address] mg/[place] [address] [phone] TSH (Thyroid Stim Horm) 1.68 ?IU/mL N 0.34-5.60 23 Free T4 (Free Thyroxine) 1.10 ng/mL N 0.61-1.12 24 T3 Total 1.30 ng/mL N 0.87-1.78 25 Basic Metabolic Panel 12/14/2014 [facility] Sodium 137 mmol/L N 133-[address] [place] [address] [phone] Potassium 4.3 mmol/L N 3.5-5.0 Chloride 103 mmol/L N 101-111 Co2 Carbon Dioxide 28 mmol/L N 22-32 Anion Gap 6 mmol/L N 2-11 Glucose 83 mg/dL N 70-100 Blood Urea Nitrogen 22 mg/dL N 6-24 Creatinine 1.03 mg/dL N 0.67-1.17 BUN/Creatinine Ratio 21.4 High 8-20 Calcium 9.6 mg/dL N 8.6-10.3 Egfr Non- 71.8 N >60 Egfr 92.4 N >60 26 Laboratory test 12/14/2014 [facility] Partial 36.5 High 26.0- 36.3 [address] [address] Time PTT [phone] Inr/Protime 12/14/2014 [facility] Inr 1.57 High 0.78-1.[address] [place] [address] [phone] CBC Auto Diff 12/14/2014 [facility] White Blood 6.3 10^3/uL N 4.8-10.[address] [place] [address] [phone] Red Blood Count 5.46 10^6/uL High 4.0-5.4 Hemoglobin 16.9 g/dL N 14.0-18.0 Hematocrit 52 % N 42-52 Mean Corpuscular Volume 95 fL High 80-94 Mean Corpuscular Hemoglobin 31 pg N 27-31 Mean Corpuscular HGB Conc 33 g/dL N 31-36 Red Cell Distribution Width 14 % N 10.5-15 Platelet Count 200 10^3/uL N 150-450 Mean Platelet Volume 8 um3 N 7.4-10.4 Abs Neutrophils 4.5 10^3/uL N 1.5-7.7 Abs Lymphocytes 1.1 10^3/uL N 1.0-4.8 Abs Monocytes 0.5 10^3/uL N 0-0.8 Abs Eosinophils 0.2 10^3/uL N 0-0.6 Abs Basophils 0 10^3/uL N 0-0.2 Abs Nucleated RBC 0.01 10^3/uL N Granulocyte % 70.4 % N 38-83 Lymphocyte % 17.6 % Low 25-47 Monocyte % 8.3 % N 1-9 Eosinophil % 3.1 % N 0-6 Basophil % 0.6 % N 0-2 Nucleated Red Blood Cells % 0.1 N Basic Metabolic Panel 02/11/2014 [facility] Sodium 136 mmol/L N 133-145 [address] [place] [address] [phone] Potassium 4.2 mmol/L N 3.5-5.0 Chloride 102 mmol/L N 101-111 Co2 Carbon Dioxide 26 mmol/L N 22-32 Anion Gap 8 mmol/L N 2-11 Glucose 114 mg/dL High 70-100 Blood Urea Nitrogen 20 mg/dL N 6-24 Creatinine 1.00 mg/dL N 0.67-1.17 BUN/Creatinine Ratio 20.0 N 8-20 Calcium 9.2 mg/dL N 8.6-10.3 Egfr Non- 74.5 N >60 Egfr 95.9 N >60 29 Laboratory test 02/11/2014 [facility] Inr 1.65 High 0.85-1.06 30 finding [address] [place] [address] [phone] Laboratory test 02/02/2014 [facility] Inr 1.94 High 0.85-1.06 31, 32 finding [address] [place] [address] [phone] Basic Metabolic 01/01/2013 [facility] Sodium 136 133-145 Panel 101 [facility] mmol/[place] [address] [phone] Potassium 4.1 mmol/L 3.5-5.0 Chloride 102 mmol/L 101-111 Co2 Carbon Dioxide 29.0 mmol/L 22-32 Anion Gap 5.0 mmol/L 2-11 Glucose 110 mg/dL High 70-100 Blood Urea Nitrogen 21 mg/dL 6-24 Creatinine 1.10 mg/dL 0.50-1.40 BUN/Creatinine Ratio 19.1 8-20 Calcium 9.4 mg/dL 8.1-9.9 Egfr Non- 67.0 >60 Egfr 86.1 >60 33 Inr/Protime 01/01/2013 [facility] Inr 2.20 High 0.85-1.06 34 [address] [place] [address] [phone] Basic Metabolic 07/21/2012 [facility] Sodium 136 mmol/L 133- 145 Panel [address] [place] [address] [phone] Potassium 4.5 mmol/L 3.5-5.0 Chloride 102 mmol/L 101-111 Co2 Carbon Dioxide 29.0 mmol/L 22-32 Anion Gap 5.0 mmol/L 2-11 Glucose 131 mg/dL High 70-100 Blood Urea Nitrogen 21 mg/dL 6-24 Creatinine 1.00 mg/dL 0.50-1.40 BUN/Creatinine Ratio 21.0 High 8-20 Calcium 9.2 mg/dL 8.1-9.9 Egfr Non- 75.0 >60 Egfr 96.4 >60 35 Basic Metabolic Panel 07/10/2012 [facility] Sodium 139 mmol/L 133-145 [address] [place] [address] [phone] Potassium 3.8 mmol/L 3.5-5.0 Chloride 104 mmol/L 101-111 Co2 Carbon Dioxide 26.0 mmol/L 22-32 Anion Gap 9.0 mmol/L 2-11 Glucose 126 mg/dL High 70-100 Blood Urea Nitrogen 26 mg/dL High 6-24 Creatinine 1.30 mg/dL 0.50-1.40 BUN/Creatinine Ratio 20.0 8-20 Calcium 9.4 mg/dL 8.1-9.9 Egfr Non- 55.4 >60 Egfr 71.3 >60 36 Laboratory 04/23/2012 [facility] Anti Double Negative Negative test finding [address] [place] [address] [phone] Laboratory 04/23/2012 [facility] Rheumatoid <15 IU/mL <15 37 test finding [address] [place] [address] [phone] Laboratory 04/23/2012 [facility] Erythrocyte Sed 68 mm/Hr High 0-[address] [place] [address] [phone] Laboratory 04/23/2012 [facility] Uric Acid 8.5 mg/dL High 2.6- 7.2 test finding [facility] [place] [address] [phone] C Reactive Protein 5.7 mg/dL High Less than 0.5 Basic Metabolic Panel 04/23/2012 [facility] Sodium 137 mmol/L 133-145 [address] [place] [address] [phone] Potassium 4.7 mmol/L 3.5-5.0 Chloride 102 mmol/L 101-111 Co2 Carbon Dioxide 26.0 mmol/L 22-32 Anion Gap 9.0 mmol/L 2-11 Glucose 121 mg/dL High 70-100 Blood Urea Nitrogen 18 mg/dL 6-24 Creatinine 1.30 mg/dL 0.50-1.40 BUN/Creatinine Ratio 13.8 8-20 Calcium 9.6 mg/dL 8.1-9.9 Egfr Non- 55.4 >60 Egfr 71.3 >60 38 Basic Metabolic Panel 04/04/2012 [facility] Sodium 138 mmol/L 133-145 [address] [place] [address] [phone] Potassium 3.5 mmol/L 3.5-5.0 Chloride 106 mmol/L 101-111 Co2 Carbon Dioxide 25.0 mmol/L 22-32 Anion Gap 7.0 mmol/L 2-11 Glucose 109 mg/dL High 70-100 Blood Urea Nitrogen 16 mg/dL 6-24 Creatinine 1.00 mg/dL 0.50-1.40 BUN/Creatinine Ratio 16.0 8-20 Calcium 8.1 mg/dL 8.1-9.9 Egfr Non- 75.0 >60 Egfr 96.4 >60 39 Laboratory test 04/04/2012 [facility] Inr 3.89 High 0.87-0.97 [address] [place] [address] [phone] Laboratory test 03/14/2012 [facility] Inr 3.19 High 0.82-1.17 [address] [place] [phone] [phone] Basic Metabolic 03/14/2012 [facility] Sodium 139 mmol/L 133- 145 Panel [address] [place] [address] [phone] Potassium 4.4 mmol/L 3.5-5.0 Chloride 105 mmol/L 101-111 Co2 Carbon Dioxide 26.0 mmol/L 22-32 Anion Gap 8.0 mmol/L 2-11 Glucose 115 mg/dL High 70-100 Blood Urea Nitrogen 21 mg/dL 6-24 Creatinine 1.10 mg/dL 0.50-1.40 BUN/Creatinine Ratio 19.1 8-20 Calcium 9.0 mg/dL 8.1-9.9 Egfr Non- 67.2 >60 Egfr 86.4 >60 42 Laboratory test 03/05/2012 [facility] Inr 1.57 High 0.82-1.17 43 finding [address] [place] [address] [phone] Comp Metabolic 03/05/2012 [facility] Sodium 138 mmol/L 133- 145 Panel [address] [place] [address] [phone] Potassium 4.8 mmol/L 3.5-5.0 Chloride 103 mmol/L 101-111 Co2 Carbon Dioxide 26.0 mmol/L 22-32 Anion Gap 9.0 mmol/L 2-11 Glucose 103 mg/dL High 70-100 Blood Urea Nitrogen 53 mg/dL High 6-24 Creatinine 2.60 mg/dL High 0.50-1.40 BUN/Creatinine Ratio 20.4 High 8-20 Calcium 9.6 mg/dL 8.1-9.9 Total Protein 6.2 g/dL 6.2-8.1 Albumin 3.9 g/dL 3.2-5.2 Globulin 2.3 g/dL 2-4 Albumin/Globulin Ratio 1.7 1-3 Total Bilirubin 1.4 mg/dL 0.4-1.5 Alkaline Phosphatase 60 U/L 30-110 Alt 23 U/L 14-54 Ast 15 U/L 12-42 Egfr Non- 24.9 >60 Egfr 32.0 >60 44 Laboratory test 03/05/2012 [facility] Magnesium 2.7 mg/dL High 1.7-2.6 finding [address] [place] [address] [phone] TSH (Thyroid Stimulating Horm) 2.92 miu/mL 0.34-5.60 CBC No Diff 01/29/2012 [facility] White Blood 5.4 10^3/uL 4.8 -10.[address] [place] [address] [phone] Red Blood Count 4.03 10^6/uL 4.0-5.4 Hemoglobin 13.0 g/dL Low 14.0-18.0 Hematocrit 37 % Low 42-52 Mean Corpuscular Volume 93 fL 80-94 Mean Corpuscular Hemoglobin 32 pg High 27-31 Mean Corpuscular HGB Conc 35 g/dL 31-36 Red Cell Distribution Width 14 % 10.5-15 Platelet Count 185 10^3/uL 150-450 Mean Platelet Volume 8 um3 7.4-10.4 Laboratory test 01/29/2012 [facility] Inr 3.00 High 0.82-1.17 45 finding [address] [place] [address] [phone] Comp Metabolic 01/29/2012 [facility] Sodium 135 mmol/L 133- 145 Panel [address] [place] [address] [phone] Potassium 4.6 mmol/L 3.5-5.0 Chloride 102 mmol/L 101-111 Co2 Carbon Dioxide 27.0 mmol/L 22-32 Anion Gap 6.0 mmol/L 2-11 Glucose 106 mg/dL High 70-100 Blood Urea Nitrogen 23 mg/dL 6-24 Creatinine 1.40 mg/dL 0.50-1.40 BUN/Creatinine Ratio 16.4 8-20 Calcium 9.3 mg/dL 8.1-9.9 Total Protein 6.2 GM/DL 6.2-8.1 Albumin 3.7 GM/DL 3.2-5.2 Globulin 2.5 GM/DL 2-4 Albumin/Globulin Ratio 1.5 1-3 Total Bilirubin 1.0 mg/dL 0.4-1.5 Alkaline Phosphatase 60 U/L 30-110 Alt 28 U/L 14-54 Ast 23 U/L 12-42 Egfr Non- 50.9 >60 Egfr 65.4 >60 46 Lipid Profile 01/29/2012 [facility] Triglycerides 315 mg/dL High 40-200 (Trig/Chol/HDL) [address] [place] [address] [phone] Cholesterol 203 mg/dL High Less than 200 HDL Cholesterol 39 mg/dL Low 40-60 47 Cholesterol/HDL Ratio 5.2 AVERAGE High 1-4.44 LDL Cholesterol 101.0 mg/dL High Less Than 100 48 Laboratory test 01/29/2012 [facility] TSH (Thyroid 1.63 0.34- 5.[address] Stimulating MIU/[place] [address] Horm) [phone] 1 Because ethnic data is not always readily available, this report includes an eGFR for both -Americans and non- Americans. The National Kidney Disease Education Program (NKDEP) does not endorse the use of the MDRD equation for patients that are not between the ages of 18 and 70, are , have extremes of body size, muscle mass, or nutritional status, or are non- or non-. According to the National Kidney Foundation, irrespective of diagnosis, the stage of the disease is based on the level of kidney function: Stage Description GFR(mL/min/1.73 m(2)) 1 Kidney damage with normal or decreased GFR 90 2 Kidney damage with mild decrease in GFR 60-89 3 Moderate decrease in GFR 30-59 4 Severe decrease in GFR 15-29 5 Kidney failure <15 (or dialysis) 2 Desirable: <150 Borderline High: 150-199 High: 200-499 Very High: >500 3 Desirable: <200 Borderline High: 200-239 High: >239 4 Low: <40 Desirable: 40-60 High: >60 5 Desirable: <100 Near Optimal: 100-129 Borderline High: 130-159 High: 160-189 Very High: >189 6 FASTING 10 HOUR Copy Result to: NATALIE MERRITT ([id number]) [id number] FASTING 10 HOUR Copy Result to: NATALIE MERRITT ([id number]) [id number] Because ethnic data is not always readily available, this report includes an eGFR for both -Americans and non- Americans. The National Kidney Disease Education Program (NKDEP) does not endorse the use of the MDRD equation for patients that are not between the ages of 18 and 70, are , have extremes of body size, muscle mass, or nutritional status, or are non- or non-. According to the National Kidney Foundation, irrespective of diagnosis, the stage of the disease is based on the level of kidney function: Stage Description GFR(mL/min/1.73 m(2)) 1 Kidney damage with normal or decreased GFR 90 2 Kidney damage with mild decrease in GFR 60-89 3 Moderate decrease in GFR 30-59 4 Severe decrease in GFR 15-29 5 Kidney failure <15 (or dialysis) 9 Because ethnic data is not always readily available, this report includes an eGFR for both -Americans and non- Americans. The National Kidney Disease Education Program (NKDEP) does not endorse the use of the MDRD equation for patients that are not between the ages of 18 and 70, are , have extremes of body size, muscle mass, or nutritional status, or are non- or non-. According to the National Kidney Foundation, irrespective of diagnosis, the stage of the disease is based on the level of kidney function: Stage Description GFR(mL/min/1.73 m(2)) 1 Kidney damage with normal or decreased GFR 90 2 Kidney damage with mild decrease in GFR 60-89 3 Moderate decrease in GFR 30-59 4 Severe decrease in GFR 15-29 5 Kidney failure <15 (or dialysis) 10 [id number] Copy Result to: NATALIE MERRITT ([id number]) 11 [id number] Copy Result to: NATALIE MERRITT ([id number]) 12 [id number] Copy Result to: NATALIE MERRITT ([id number]) 13 Because ethnic data is not always readily available, this report includes an eGFR for both -Americans and non- Americans. The National Kidney Disease Education Program (NKDEP) does not endorse the use of the MDRD equation for patients that are not between the ages of 18 and 70, are , have extremes of body size, muscle mass, or nutritional status, or are non- or non-. According to the National Kidney Foundation, irrespective of diagnosis, the stage of the disease is based on the level of kidney function: Stage Description GFR(mL/min/1.73 m(2)) 1 Kidney damage with normal or decreased GFR 90 2 Kidney damage with mild decrease in GFR 60-89 3 Moderate decrease in GFR 30-59 4 Severe decrease in GFR 15-29 5 Kidney failure <15 (or dialysis) 14 [id number] Copy Result to: NATALIE MERRITT ([id number]) 15 [id number] Copy Result to: NATALIE MERRITT ([id number]) 16 [id number] Copy Result to: NATALIE MERRITT ([id number]) 17 [id number] Copy Result to: NATALIE MERRITT ([id number]) 18 Because ethnic data is not always readily available, this report includes an eGFR for both -Americans and non- Americans. The National Kidney Disease Education Program (NKDEP) does not endorse the use of the MDRD equation for patients that are not between the ages of 18 and 70, are , have extremes of body size, muscle mass, or nutritional status, or are non- or non-. According to the National Kidney Foundation, irrespective of diagnosis, the stage of the disease is based on the level of kidney function: Stage Description GFR(mL/min/1.73 m(2)) 1 Kidney damage with normal or decreased GFR 90 2 Kidney damage with mild decrease in GFR 60-89 3 Moderate decrease in GFR 30-59 4 Severe decrease in GFR 15-29 5 Kidney failure <15 (or dialysis) 19 Because ethnic data is not always readily available, this report includes an eGFR for both -Americans and non- Americans. The National Kidney Disease Education Program (NKDEP) does not endorse the use of the MDRD equation for patients that are not between the ages of 18 and 70, are , have extremes of body size, muscle mass, or nutritional status, or are non- or non-. According to the National Kidney Foundation, irrespective of diagnosis, the stage of the disease is based on the level of kidney function: Stage Description GFR(mL/min/1.73 m(2)) 1 Kidney damage with normal or decreased GFR 90 2 Kidney damage with mild decrease in GFR 60-89 3 Moderate decrease in GFR 30-59 4 Severe decrease in GFR 15-29 5 Kidney failure <15 (or dialysis) 20 Copy Result to: LAN GOMEZ ([id number]) 21 Because ethnic data is not always readily available, this report includes an eGFR for both -Americans and non- Americans. The National Kidney Disease Education Program (NKDEP) does not endorse the use of the MDRD equation for patients that are not between the ages of 18 and 70, are , have extremes of body size, muscle mass, or nutritional status, or are non- or non-. According to the National Kidney Foundation, irrespective of diagnosis, the stage of the disease is based on the level of kidney function: Stage Description GFR(mL/min/1.73 m(2)) 1 Kidney damage with normal or decreased GFR 90 2 Kidney damage with mild decrease in GFR 60-89 3 Moderate decrease in GFR 30-59 4 Severe decrease in GFR 15-29 5 Kidney failure <15 (or dialysis) 22 Copy Result to: NATALIE MERRITT ([id number]) 23 Copy Result to: NATALIE MERRITT ([id number]) 24 Copy Result to: NATALIE MERRITT ([id number]) 25 Copy Result to: NATALIE MERRITT ([id number]) 26 Because ethnic data is not always readily available, this report includes an eGFR for both -Americans and non- Americans. The National Kidney Disease Education Program (NKDEP) does not endorse the use of the MDRD equation for patients that are not between the ages of 18 and 70, are , have extremes of body size, muscle mass, or nutritional status, or are non- or non-. According to the National Kidney Foundation, irrespective of diagnosis, the stage of the disease is based on the level of kidney function: Stage Description GFR(mL/min/1.73 m(2)) 1 Kidney damage with normal or decreased GFR 90 2 Kidney damage with mild decrease in GFR 60-89 3 Moderate decrease in GFR 30-59 4 Severe decrease in GFR 15-29 5 Kidney failure <15 (or dialysis) 27 Copy Result to: NATALIE MERRITT ([id number]) 28 CALL RESULTS TO [id number] 29 Because ethnic data is not always readily available, this report includes an eGFR for both -Americans and non- Americans. The National Kidney Disease Education Program (NKDEP) does not endorse the use of the MDRD equation for patients that are not between the ages of 18 and 70, are , have extremes of body size, muscle mass, or nutritional status, or are non- or non-. According to the National Kidney Foundation, irrespective of diagnosis, the stage of the disease is based on the level of kidney function: Stage Description GFR(mL/min/1.73 m(2)) 1 Kidney damage with normal or decreased GFR 90 2 Kidney damage with mild decrease in GFR 60-89 3 Moderate decrease in GFR 30-59 4 Severe decrease in GFR 15-29 5 Kidney failure <15 (or dialysis) 30 CALL RESULTS TO [phone] 31 ORDERED BY NADIA ABRAMS FAX: [phone] 32 ORDERED BY NADIA ABRAMS FAX: [phone] 33 Because ethnic data is not always readily available, this report includes an eGFR for both -Americans and non- Americans. The National Kidney Disease Education Program (NKDEP) does not endorse the use of the MDRD equation for patients that are not between the ages of 18 and 70, are , have extremes of body size, muscle mass, or nutritional status, or are non- or non-. According to the National Kidney Foundation, irrespective of diagnosis, the stage of the disease is based on the level of kidney function: Stage Description GFR(mL/min/1.73 m(2)) 1 Kidney damage with normal or decreased GFR 90 2 Kidney damage with mild decrease in GFR 60-89 3 Moderate decrease in GFR 30-59 4 Severe decrease in GFR 15-29 5 Kidney failure <15 (or dialysis) 34 Please note the change in the INR reference range effective 13. 35 Because ethnic data is not always readily available, this report includes an eGFR for both -Americans and non- Americans. The National Kidney Disease Education Program (NKDEP) does not endorse the use of the MDRD equation for patients that are not between the ages of 18 and 70, are , have extremes of body size, muscle mass, or nutritional status, or are non- or non-. According to the National Kidney Foundation, irrespective of diagnosis, the stage of the disease is based on the level of kidney function: Stage Description GFR(mL/min/1.73 m(2)) 1 Kidney damage with normal or decreased GFR 90 2 Kidney damage with mild decrease in GFR 60-89 3 Moderate decrease in GFR 30-59 4 Severe decrease in GFR 15-29 5 Kidney failure <15 (or dialysis) 36 Because ethnic data is not always readily available, this report includes an eGFR for both -Americans and non- Americans. The National Kidney Disease Education Program (NKDEP) does not endorse the use of the MDRD equation for patients that are not between the ages of 18 and 70, are , have extremes of body size, muscle mass, or nutritional status, or are non- or non-. According to the National Kidney Foundation, irrespective of diagnosis, the stage of the disease is based on the level of kidney function: Stage Description GFR(mL/min/1.73 m(2)) 1 Kidney damage with normal or decreased GFR 90 2 Kidney damage with mild decrease in GFR 60-89 3 Moderate decrease in GFR 30-59 4 Severe decrease in GFR 15-29 5 Kidney failure <15 (or dialysis) 37 Test Performed by: [place] [address] Laser Systems Engineer: Javier Norris III, M.D. 38 Because ethnic data is not always readily available, this report includes an eGFR for both -Americans and non- Americans. The National Kidney Disease Education Program (NKDEP) does not endorse the use of the MDRD equation for patients that are not between the ages of 18 and 70, are , have extremes of body size, muscle mass, or nutritional status, or are non- or non-. According to the National Kidney Foundation, irrespective of diagnosis, the stage of the disease is based on the level of kidney function: Stage Description GFR(mL/min/1.73 m(2)) 1 Kidney damage with normal or decreased GFR 90 2 Kidney damage with mild decrease in GFR 60-89 3 Moderate decrease in GFR 30-59 4 Severe decrease in GFR 15-29 5 Kidney failure <15 (or dialysis) 39 Because ethnic data is not always readily available, this report includes an eGFR for both -Americans and non- Americans. The National Kidney Disease Education Program (NKDEP) does not endorse the use of the MDRD equation for patients that are not between the ages of 18 and 70, are , have extremes of body size, muscle mass, or nutritional status, or are non- or non-. According to the National Kidney Foundation, irrespective of diagnosis, the stage of the disease is based on the level of kidney function: Stage Description GFR(mL/min/1.73 m(2)) 1 Kidney damage with normal or decreased GFR 90 2 Kidney damage with mild decrease in GFR 60-89 3 Moderate decrease in GFR 30-59 4 Severe decrease in GFR 15-29 5 Kidney failure <15 (or dialysis) 40 Please note the change in INR reference range effective 12. The INR(International Normalized Ratio) was adopted by the World Health Organization (WHO) in 1982 as a standardized system of reporting PT (Prothrombin Time). The Centers for Disease Control (CDC) states that reporting of PT results in INR only is the preferred method. Recommended INR for Patients on Oral Anticoagulants Prophylaxis 2.0 - 3.0 Treatment of thrombosis 2.0 - 3.0 Prevention of embolism 2.0 - 3.0 Prevention of embolism from prosthetic heart valves 2.5 - 3.5 41 The INR(International Normalized Ratio) was adopted by the World Health Organization (WHO) in 1982 as a standardized system of reporting PT (Prothrombin Time). The Centers for Disease Control (CDC) states that reporting of PT results in INR only is the preferred method. Recommended INR for Patients on Oral Anticoagulants Prophylaxis 2.0 - 3.0 Treatment of thrombosis 2.0 - 3.0 Prevention of embolism 2.0 - 3.0 Prevention of embolism from prosthetic heart valves 2.5 - 3.5 42 Because ethnic data is not always readily available, this report includes an eGFR for both -Americans and non- Americans. The National Kidney Disease Education Program (NKDEP) does not endorse the use of the MDRD equation for patients that are not between the ages of 18 and 70, are , have extremes of body size, muscle mass, or nutritional status, or are non- or non-. According to the National Kidney Foundation, irrespective of diagnosis, the stage of the disease is based on the level of kidney function: Stage Description GFR(mL/min/1.73 m(2)) 1 Kidney damage with normal or decreased GFR 90 2 Kidney damage with mild decrease in GFR 60-89 3 Moderate decrease in GFR 30-59 4 Severe decrease in GFR 15-29 5 Kidney failure <15 (or dialysis) 43 The INR(International Normalized Ratio) was adopted by the World Health Organization (WHO) in 1982 as a standardized system of reporting PT (Prothrombin Time). The Centers for Disease Control (CDC) states that reporting of PT results in INR only is the preferred method. Recommended INR for Patients on Oral Anticoagulants Prophylaxis 2.0 - 3.0 Treatment of thrombosis 2.0 - 3.0 Prevention of embolism 2.0 - 3.0 Prevention of embolism from prosthetic heart valves 2.5 - 3.5 44 Because ethnic data is not always readily available, this report includes an eGFR for both -Americans and non- Americans. The National Kidney Disease Education Program (NKDEP) does not endorse the use of the MDRD equation for patients that are not between the ages of 18 and 70, are , have extremes of body size, muscle mass, or nutritional status, or are non- or non-. According to the National Kidney Foundation, irrespective of diagnosis, the stage of the disease is based on the level of kidney function: Stage Description GFR(mL/min/1.73 m(2)) 1 Kidney damage with normal or decreased GFR 90 2 Kidney damage with mild decrease in GFR 60-89 3 Moderate decrease in GFR 30-59 4 Severe decrease in GFR 15-29 5 Kidney failure <15 (or dialysis) 45 The INR(International Normalized Ratio) was adopted by the World Health Organization (WHO) in 1983 as a standardized system of reporting PT (Prothrombin Time). The Centers for Disease Control (CDC) states that reporting of PT results in INR only is the preferred method. Recommended INR for Patients on Oral Anticoagulants Prophylaxis 2.0 - 3.0 Treatment of thrombosis 2.0 - 3.0 Prevention of embolism 2.0 - 3.0 Prevention of embolism from prosthetic heart valves 2.5 - 3.5 46 Because ethnic data is not always readily available, this report includes an eGFR for both -Americans and non- Americans. The National Kidney Disease Education Program (NKDEP) does not endorse the use of the MDRD equation for patients that are not between the ages of 18 and 70, are , have extremes of body size, muscle mass, or nutritional status, or are non- or non-. According to the National Kidney Foundation, irrespective of diagnosis, the stage of the disease is based on the level of kidney function: Stage Description GFR(mL/min/1.73 m(2)) 1 Kidney damage with normal or decreased GFR 90 2 Kidney damage with mild decrease in GFR 60-89 3 Moderate decrease in GFR 30-59 4 Severe decrease in GFR 15-29 5 Kidney failure <15 (or dialysis) 47 HDL Interpretation: Undesirable: High Risk: Less than 40 MG/DL Desirable: Low Risk: Greater than 60 MG/DL 48 LDL Interpretation: Low Risk Optimal Level: LDL Less than 100 MG/DL Near or Above Optimal: LDL 100-129 MG/DL Borderline High Risk: LDL 130-159 MG/DL High Risk: LDL 160-189 MG/DL Very High Risk: LDL Greater than 189 MG/DL Procedures Date Code Description Status 08/28/2018 64118 EKG Tracing & Interpretation Completed 04/07/2018 32081 Diffusing Capacity Completed 04/07/2018 51825 Plethysmography Determination Lung Volumes & Per Airway Completed Resist 03/25/2018 28188 EKG Tracing & Interpretation Completed 03/10/2018 38963 ECHO Transthoracic, Real-Time 2D With Doppler And Color Completed Flow 03/10/2018 90831 ECHO Transthoracic, Real-Time 2D With Doppler And Color Completed Flow 08/09/2017 28406 EKG Tracing & Interpretation Completed 06/21/2017 33436 Pulmonary Function><Bronchodil Completed 06/21/2017 73529 Plethysmography Determination Lung Volumes & Per Airway Completed Resist 06/21/2017 40360 Diffusing Capacity Completed 10/09/2016 96149 EKG Tracing & Interpretation Completed 10/04/2016 82106 Moderate Sedation Services; Same Phys Intl 15 Mins; PT >=5 Completed Years 10/04/2016 64505 EKG, Interpretation Only Completed 10/04/2016 23531 Cardioversion Completed 08/23/2016 11624 EKG Tracing & Interpretation Completed 08/08/2016 00172 EKG, Interpretation Only Completed 08/08/2016 80323 Cardioversion Completed 08/03/2016 99039 EKG Tracing & Interpretation Completed 04/10/2016 07766 EKG Tracing & Interpretation Completed 10/17/2015 82030 EKG Tracing & Interpretation Completed 07/11/2015 21203 EKG Tracing & Interpretation Completed 04/27/2015 61701 Polysomnography Sleep Staging 4+ Parameters Completed 04/13/2015 48809 ECHO Transthoracic, Real-Time 2D With Doppler And Color Completed Flow 03/14/2015 94793 EKG Tracing & Interpretation Completed 02/04/2015 61756 EKG Tracing & Interpretation Completed 01/15/2015 87226 EKG, Interpretation Only Completed 01/14/2015 62959 EKG, Interpretation Only Completed 01/13/2015 71428 EKG, Interpretation Only Completed 01/13/2015 76020 Cardioversion Completed 01/12/2015 33039 EKG, Interpretation Only Completed 01/12/2015 75134 EKG, Interpretation Only Completed 01/11/2015 58357 EKG, Interpretation Only Completed 01/10/2015 49371 EKG Tracing & Interpretation Completed 01/05/2015 17417 EKG Tracing & Interpretation Completed 12/29/2014 24425 Cardioversion Completed 12/29/2014 39969 EKG, Interpretation Only Completed 12/21/2014 70257 EKG Tracing & Interpretation Completed 12/16/2014 29371 Color Flow Doppler/Interp & Reprt Completed 12/16/2014 16489 Pulse Wave/Continuous-Interp.RPT Completed 12/16/2014 52843 Echocardiography, Transesophageal, Real Time W/Image 2D Completed W/W/O M-M 12/16/2014 25029 EKG, Interpretation Only Completed 12/16/2014 08167 Cardioversion Completed 12/14/2014 85085 EKG Tracing & Interpretation Completed 06/22/2014 86070 EKG Tracing & Interpretation Completed 02/19/2014 25843 EKG Tracing & Interpretation Completed 02/11/2014 60719 EKG, Interpretation Only Completed 02/11/2014 36043 Cardioversion Completed 02/04/2014 12218 Cardioversion Completed 02/03/2014 78996 ECHO Transthoracic, Real-Time 2D With Doppler And Color Completed Flow 02/01/2014 08977 EKG Tracing & Interpretation Completed 06/26/2013 45356 EKG Tracing & Interpretation Completed 06/16/2013 00278 Myocardial Perfusion Imaging Tomographic (Spect) Multiple Completed Studies 06/16/2013 56160 Stress Test Completed 06/08/2013 75242 EKG Tracing & Interpretation Completed 12/31/2012 96764 EKG Tracing & Interpretation Completed 07/23/2012 51220 EKG Tracing & Interpretation Completed 07/10/2012 54600 EKG, Interpretation Only Completed 07/10/2012 64982 Cardioversion Completed 07/01/2012 34616 EKG Tracing & Interpretation Completed 04/23/2012 11115 EKG Tracing & Interpretation Completed 04/07/2012 43169 EKG Tracing & Interpretation Completed 04/04/2012 18603 Cardioversion Completed 04/04/2012 17656 EKG, Interpretation Only Completed 04/02/2012 39257 EKG Tracing & Interpretation Completed 03/14/2012 32133 Color Flow Doppler/Interp & Reprt Completed 03/14/2012 77491 Pulse Wave/Continuous-Interp.RPT Completed 03/14/2012 75751 Echocardiography, Transesophageal, Real Time W/Image 2D Completed W/W/O M-M 03/14/2012 60795 EKG, Interpretation Only Completed 03/14/2012 52348 Cardioversion Completed 03/11/2012 74035 EKG Tracing & Interpretation Completed Encounters Type Date Location Provider Dx Diagnosis Office Visit 03/25/2018 [facility] Natalie Merritt I48.0 Paroxysmal atrial 9:00a Of [employer] Work[employer] M.D. fibrillation I10 Essential (primary) hypertension I71.2 Thoracic aortic aneurysm, without rupture R00.1 Bradycardia, unspecified Office Visit 08/09/2017 8:20a [facility] Natalie Merritt I48.0 Paroxysmal atrial Of [employer] [facility] [place] [facility] [place] I10 Essential (primary) hypertension I71.2 Thoracic aortic aneurysm, without rupture E06.4 Drug-induced thyroiditis Office Visit 12/25/2016 2:45p [facility] Natalie Merritt I48.0 Paroxysmal atrial Of [employer] Worker M.D. fibrillation I10 Essential (primary) hypertension G47.33 Obstructive sleep apnea (adult) (pediatric) Office Visit 10/09/2016 9:30a [facility] Cassie Wang I48.0 Paroxysmal atrial Of [employer] Worker PA fibrillation I10 Essential (primary) hypertension G47.33 Obstructive sleep apnea (adult) (pediatric) Office Visit 08/23/2016 8:20a [facility] Natalie Merritt I48.0 Paroxysmal atrial Of [employer] Worker [place] [facility] [place] fibrillation I10 Essential (primary) hypertension G47.33 Obstructive sleep apnea (adult) (pediatric) Office Visit 08/03/2016 11:20a [facility] Natalie Merritt I48.0 Paroxysmal atrial Of [employer] Worker [place] [facility] [place]. fibrillation I10 Essential (primary) hypertension Office Visit 04/10/2016 10:45a [facility] Natalie Merritt I48.0 Paroxysmal atrial Of [employer] Worker M.D. fibrillation I10 Essential (primary) hypertension G47.33 Obstructive sleep apnea (adult) (pediatric) Z68.39 Body mass index (BMI) 39.0-39.9, adult Office Visit 10/17/2015 9:00a [facility] Natalie Merritt I48.0 Paroxysmal atrial Of [employer] Worker M.D. fibrillation I10 Essential (primary) hypertension G47.33 Obstructive sleep apnea (adult) (pediatric) Z68.34 Body mass index (BMI) 34.0-34.9, adult Office Visit 07/11/2015 8:15a [facility] Natalie Merritt I48.0 Paroxysmal atrial Of [employer] Worker M.D. fibrillation I10 Essential (primary) hypertension G47.33 Obstructive sleep apnea (adult) (pediatric) Z68.34 Body mass index (BMI) 34.0-34.9, adult E66.09 Other obesity due to excess calories Office Visit 05/26/2015 8:30a [facility] G47.33 Obstructive sleep [facility] apnea (adult) [employer] Worker (pediatric) E66.09 Other obesity due to excess calories Office Visit 04/06/2015 11:00a [facility] G47.9 Sleep disorder, [facility] unspecified [employer] Worker E66.09 Other obesity due to excess calories I48.0 Paroxysmal atrial fibrillation Office Visit 03/14/2015 9:45a [facility] Natalie Merritt I48.0 Paroxysmal atrial Of [employer] Worker M.D. fibrillation M10.00 Idiopathic gout, unspecified site I42.8 Other cardiomyopathies Office Visit 02/04/2015 10:45a [facility] Natalie Merritt I48.0 Paroxysmal atrial Of [employer] Worker M.D. fibrillation Z79.01 USP (current) use of anticoagulants Office Visit 01/15/2015 11:19a [facility] Wei Pickering I48.0 Paroxysmal atrial Of [employer] Worker Brand, M.D. fibrillation Office Visit 01/14/2015 1:11p [facility] Peña Acosta I48.0 Paroxysmal atrial Elaine Jason fibrillation Office Visit 01/13/2015 2:34p [facility] Natalie Merritt I48.0 Paroxysmal atrial Of [employer] Worker M.D. fibrillation Office Visit 01/12/2015 10:22a [facility] Natalie René, I48.0 Paroxysmal atrial Of [employer] Worker M.D. fibrillation Office Visit 01/05/2015 3:30p [facility] Natalie Merritt, I48.0 Paroxysmal atrial Of [employer] Worker M.D. fibrillation R94.31 Abnormal electrocardiogram [ECG] [EKG] Office Visit 12/22/2014 2:00p [facility] Natalie Merritt, I48.1 Persistent atrial Of [employer] Worker M.D. fibrillation I10 Essential (primary) hypertension Office Visit 12/14/2014 10:00a [facility] Natalie Merritt, I48.0 Paroxysmal atrial Of [employer] Worker M.D. fibrillation I10 Essential (primary) hypertension R00.2 Palpitations Office Visit 06/22/2014 9:00a [facility] Natalie Merritt 427.31 Atrial Cardiology Of M.D. Fibrillation [employer] Worker 401.9 Hypertension Unspec 785.1 Palpitations 272.4 Hyperlipidemia Other Unspec Office Visit 02/19/2014 9:00a [facility] Natalie Merritt 427.31 Atrial Cardiology Of M.D. Fibrillation [employer] Work[employer] Office Visit 02/01/2014 8:30a [facility] Cassie Wang, NADIA 427.31 Atrial Cardiology Of Fibrillation [employer] Worker 401.9 Hypertension Unspec 785.1 Palpitations 278.00 Obesity Unspec Office Visit 07/29/2013 8:30a [facility] Cassie Wang, 401.9 Hypertension Unspec Of [employer] Worker [place] 427.31 Atrial Fibrillation 278.00 Obesity Unspec Office Visit 06/26/2013 9:00a [facility] Natalie Merritt, 401.9 Hypertension Of [employer] Worker M.D. Unspec 427.31 Atrial Fibrillation 794.39 Cardiovascular Study Other Abnormal Office Visit 06/08/2013 8:45a [facility] Natalie Merritt 427.31 Atrial Cardiology Of M.D. Fibrillation [employer] Worker 401.9 Hypertension Unspec 794.31 Electrocardiogram (ECG) (EKG) Abnormal Office Visit 12/31/2012 9:45a [facility] Natalie Merritt 401.9 Hypertension Of [employer] Worker M.D. Unspec 427.31 Atrial Fibrillation 785.1 Palpitations Office Visit 09/10/2012 8:45a Rukhsana Merritt 427.31 Atrial Cardiology Of M.D. Fibrillation [employer] Worker 401.9 Hypertension Unspec Office Visit 07/23/2012 11:30a Rukhsana Merritt 427.31 Atrial Cardiology Of M.D. Fibrillation [employer] Worker 785.1 Palpitations 786.09 Dyspnea & Respiratory Abnormalities Other 401.9 Hypertension Unspec Office Visit 07/01/2012 8:15a [facility] Natalie Merritt 427.31 Atrial Cardiology Of M.D. Fibrillation [employer] Worker 401.9 Hypertension Unspec 278.00 Obesity Unspec Office Visit 04/23/2012 8:45a [facility] Natalie Merritt 427.31 Atrial Cardiology Of M.D. Fibrillation [employer] Worker 427.61 Premature Beats Supraventricular Office Visit 04/07/2012 9:30a [facility] Nurse Visit 427.31 Atrial Fibrillation Of [employer] Worker IC Office Visit 04/02/2012 8:45a [facility] Natalie 427.31 Atrial Fibrillation Of Cira CraryElaine 782.3 Edema 401.9 Hypertension Unspec Office Visit 03/11/2012 4:30p [facility] Natalie Merritt, 427.31 Atrial Cardiology Of M.D. Fibrillation [employer] Worker 401.9 Hypertension Unspec 786.09 Dyspnea & Respiratory Abnormalities Other Plan of Treatment Future Appointment(s):09/19/2018 12:00 pm - NADIA [facility]09/19/2018 12:00 pm - Ezra Harrison M.D. at [facility].09/19/2018 12:00 pm - Rashad Almonte MD at [facility].09/11/2018 1:30 pm - Rashad Almonte MD at [facility]08/28/2018 - Calista Rodriguez, NPI48.0 Paroxysmal atrial fibrillationFollow up:with Dr. Merritt in 6 [id number] Thoracic aortic aneurysm, without [id number] Essential (primary) hypertensionRecommendations:Please stop Aldactone also known as spironolactone due to elevated potassium level. You will need repeat non fasting blood work in 7-10 days. IF you notice blood pressure is consistently > 130/80 call me.E78.5 Hyperlipidemia, [id number] Encounter for preprocedural cardiovascular examinationNew Orders:Stress Test, Pharmacologic Nuclear (Lexiscan), Ordered: 08/28/18
--- OUTSIDE RECORDS SUMMARY | 2018-09-19 06:44 | XMS REPORT | Continuity of Care Document ---
:1945 External Reference #:[id number] Author Name JaylynNury gabriel Care Team Providers Name Role Phone Lan Gomez M.D. 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 Onset: 08/09/2017 Family History Date Family Member(s) Observation Comments General MD Father MD age 72 Mother Alive at age 94 Siblings 4 Sister w/DM Social History Type Date Description Comments Sex Unknown Marital Status Lives With Occupation Medically Retired Tobacco Use Start: Unknown Never Smoked Cigarettes Smoking Status Reviewed: 09/11/18 Never Smoked Cigarettes ETOH Use Denies alcohol [...] Older Vital Signs Date Vital Result Comment 09/11/2018 1:22pm Height 66 inches 5'6" Weight 212.00 lb Heart Rate 88 /min BP Systolic 136 mmHg BP Diastolic 80 mmHg Respiratory Rate 18 /min Body Temperature 98.1 F Pain Level 7 BMI (Body Mass Index) 34.2 kg/m2 08/28/2018 12:47pm Height 66 inches 5'6" Weight [...] H/L Range Note CBC Auto Diff 07/31/2018 [facility] White Blood 6.4 10^3/uL N 3.5-10.[address] [place] [address] [phone] Red Blood Count 5.15 10^6/uL N 4.18-5.48 [...] Cells % 0.1 Comp Metabolic Panel 07/31/2018 [facility] Sodium 138 mmol/L N 135-[address] [place] [address] [phone] Potassium 5.0 mmol/L N 3.5-5.0 Chloride 103 [...] Egfr 91.0 >60 1 Lipid Profile 07/31/2018 [facility] Triglycerides 179 mg/dL 2 (Trig/Chol/HDL) [address] [place] [address] [phone] Cholesterol 239 mg/dL 3 HDL Cholesterol 36.5 mg/dL 4 LDL Cholesterol 167 mg/dL 5 Laboratory test 07/31/2018 [facility] Uric Acid 4.9 mg/dL N 4.4-7.6 6 finding [address] [place] [address] [phone] TSH (Thyroid Stim Horm) 3.25 mcIU/mL N 0.34-5.60 7 Comp Metabolic Panel 05/15/2018 [facility] Sodium 138 mmol/L N 135-145 [address] [place] [address] [phone] Potassium 4.5 mmol/L N 3.5-5.0 Chloride 103 [...] Egfr 92.3 >60 8 Thyroid Panel 05/15/2018 [facility] Free T4 1.10 ng/dL N 0.61- 1.12 [address] [place] [address] [phone] Thyroxine 11.58 g/dL N 6.09-12.23 TSH (Thyroid Stimulating Horm) 2.78 mcIU/mL N 0.34-5.60 Comp Metabolic Panel 10/21/2017 [facility] Sodium 142 mmol/L N 135-145 [address] [place] [address] [phone] Potassium 4.8 mmol/L N 3.5-5.0 Chloride 106 [...] Egfr 98.1 >60 9 Laboratory test 10/21/2017 [facility] Thyroxine 11.93 g/mL N 6.09-12.23 [address] [place] [address] [phone] TSH (Thyroid Stim Horm) 3.37 mcIU/mL N 0.34-5.60 11 Free T4 (Free Thyroxine) 1.18 ng/dL High 0.61-1.12 12 CBC Auto Diff 05/29/2017 [facility] White Blood 7.2 10^3/uL N 3.5-10.[address] [place] [address] [phone] Red Blood Count 5.09 10^6/uL N 4.0-5.4 [...] Red Blood Cells % 0 Inr/Protime 05/29/2017 [facility] Inr 3.47 High 0.77-1.[address] [place] [address] [phone] Comp Metabolic 05/29/2017 [facility] Sodium 138 mmol/L Low 139 -[address] [place] [address] [phone] Potassium 4.4 mmol/L N 3.5-5.0 Chloride 100 [...] Egfr 104.6 >60 13 Laboratory test 05/29/2017 [facility] Uric Acid 4.6 mg/dL N 4.4-7.[address] [place] [address] [phone] TSH (Thyroid Stim Horm) 2.94 mcIU/mL N 0.34-5.60 15 Free T4 (Free Thyroxine) 1.19 ng/dL High 0.61-1.12 16 T3 Total 1.13 ng/mL N 0.87-1.78 17 Thyroid Panel 12/25/2016 [facility] Free T4 (Free <pending> DRIVE Thyroxine) [place] [address] [phone] Thyroxine <pending> TSH (Thyroid Stim Horm) <pending> Basic Metabolic Panel 09/19/2016 [facility] Sodium 137 mmol/L N 133-[address] [place] [address] [phone] Potassium 5.0 mmol/L N 3.5-5.0 Chloride 104 mmol/L N 101-111 Co2 Carbon Dioxide 26 mmol/L N 22-32 Anion Gap 7 mmol/L N 2-11 Glucose 111 mg/dL High 70-100 Blood Urea Nitrogen 19 mg/dL N 6-24 Creatinine 0.81 mg/dL N 0.67-1.17 BUN/Creatinine Ratio 23.5 High 8-20 Calcium 9.3 mg/dL N 8.6-10.3 Egfr Non- 94.2 N >60 Egfr 121.2 N >60 18 Inr/Protime 09/19/2016 [facility] Inr 4.57 High 0.89-1.11 [address] [place] [address] [phone] Comp Metabolic 08/27/2016 [facility] Sodium 138 mmol/L N 133- 145 Panel [address] [place] [address] [phone] Potassium 5.2 mmol/L High 3.5-5.0 Chloride 105 [...] Egfr 98.4 N >60 19 Inr/Protime 08/27/2016 [facility] Inr 1.66 High 0.89-1.11 [address] [place] [address] [phone] Laboratory test 08/03/2016 [facility] Magnesium 1.9 mg/dL N 1.9-2.7 20 finding [address] [place] [address] [phone] Comp Metabolic 08/03/2016 [facility] Sodium 138 N 133-[address] mmol/L [place], [place] [address] [phone] Potassium 4.5 mmol/L N 3.5-5.0 Chloride 103 [...] Egfr 104.6 N >60 21 Inr/Protime 08/03/2016 [facility] Inr 2.25 High 0.89-1.[address] [place] [address] [phone] Inr/Protime 12/16/2014 [facility] Inr 1.98 High 0.78-1.[address] [place] [address] [phone] Laboratory test 12/16/2014 [facility] Erythrocyte Sed 9 mm/Hr N 0-[address] [place] [address] [phone] Laboratory test 12/14/2014 [facility] Uric Acid 8.8 High 4.4- 7.6 [address] mg/[place] [address] [phone] TSH (Thyroid Stim Horm) 1.68 ?IU/mL N 0.34-5.60 23 Free T4 (Free Thyroxine) 1.10 ng/mL N 0.61-1.12 24 T3 Total 1.30 ng/mL N 0.87-1.78 25 Basic Metabolic Panel 12/14/2014 [facility] Sodium 137 mmol/L N 133-[address] [place] [address] [phone] Potassium 4.3 mmol/L N 3.5-5.0 Chloride 103 mmol/L N 101-111 Co2 Carbon Dioxide 28 mmol/L N 22-32 Anion Gap 6 mmol/L N 2-11 Glucose 83 mg/dL N 70-100 Blood Urea Nitrogen 22 mg/dL N 6-24 Creatinine 1.03 mg/dL N 0.67-1.17 BUN/Creatinine Ratio 21.4 High 8-20 Calcium 9.6 mg/dL N 8.6-10.3 Egfr Non- 71.8 N >60 Egfr 92.4 N >60 26 Laboratory test 12/14/2014 [facility] Partial 36.5 High 26.0- 36.[address] [place] [address] Time PTT [phone] Inr/Protime 12/14/2014 [facility] Inr 1.57 High 0.78-1.[address] [place] [address] [phone] CBC Auto Diff 12/14/2014 [facility] White Blood 6.3 10^3/uL N 4.8-10.[address] [place] [address] [phone] Red Blood Count 5.46 10^6/uL High 4.0-5.4 [...] % 0.1 N Basic Metabolic Panel 02/11/2014 [facility] Sodium 136 mmol/L N 133-145 28 [address] [place] [address] [phone] Potassium 4.2 mmol/L N 3.5-5.0 Chloride 102 mmol/L N 101-111 Co2 Carbon Dioxide 26 mmol/L N 22-32 Anion Gap 8 mmol/L N 2-11 Glucose 114 mg/dL High 70-100 Blood Urea Nitrogen 20 mg/dL N 6-24 Creatinine 1.00 mg/dL N 0.67-1.17 BUN/Creatinine Ratio 20.0 N 8-20 Calcium 9.2 mg/dL N 8.6-10.3 Egfr Non- 74.5 N >60 Egfr 95.9 N >60 29 Laboratory test 02/11/2014 [facility] Inr 1.65 High 0.85-1.06 30 finding [address] [place] [address] [phone] Laboratory test 02/02/2014 [facility] Inr 1.94 High 0.85-1.06 31, 32 finding [address] [place] [address] [phone] Basic Metabolic 01/01/2013 [facility] Sodium 136 133-145 Panel mmol/[place] [address] [phone] Potassium 4.1 mmol/L 3.5-5.0 Chloride 102 mmol/L 101-111 Co2 Carbon Dioxide 29.0 mmol/L 22-32 Anion Gap 5.0 mmol/L 2-11 Glucose 110 mg/dL High 70-100 Blood Urea Nitrogen 21 mg/dL 6-24 Creatinine 1.10 mg/dL 0.50-1.40 BUN/Creatinine Ratio 19.1 8-20 Calcium 9.4 mg/dL 8.1-9.9 Egfr Non- 67.0 >60 Egfr 86.1 >60 33 Inr/Protime 01/01/2013 [facility] Inr 2.20 High 0.85-1.06 34 [address] [place] [address] [phone] Basic Metabolic 07/21/2012 [facility] Sodium 136 mmol/L 133- 145 Panel [address] [place] [address] [phone] Potassium 4.5 mmol/L 3.5-5.0 Chloride 102 mmol/L 101-111 Co2 Carbon Dioxide 29.0 mmol/L 22-32 Anion Gap 5.0 mmol/L 2-11 Glucose 131 mg/dL High 70-100 Blood Urea Nitrogen 21 mg/dL 6-24 Creatinine 1.00 mg/dL 0.50-1.40 BUN/Creatinine Ratio 21.0 High 8-20 Calcium 9.2 mg/dL 8.1-9.9 Egfr Non- 75.0 >60 Egfr 96.4 >60 35 Basic Metabolic Panel 07/10/2012 [facility] Sodium 139 mmol/L 133-145 [address] [place] [address] [phone] Potassium 3.8 mmol/L 3.5-5.0 Chloride 104 mmol/L 101-111 Co2 Carbon Dioxide 26.0 mmol/L 22-32 Anion Gap 9.0 mmol/L 2-11 Glucose 126 mg/dL High 70-100 Blood Urea Nitrogen 26 mg/dL High 6-24 Creatinine 1.30 mg/dL 0.50-1.40 BUN/Creatinine Ratio 20.0 8-20 Calcium 9.4 mg/dL 8.1-9.9 Egfr Non- 55.4 >60 Egfr 71.3 >60 36 Laboratory 04/23/2012 [facility] Anti Double Negative Negative test finding [place] [address] [phone] Laboratory 04/23/2012 [facility] Rheumatoid <15 IU/mL <15 37 test [place] [address] [phone] Laboratory 04/23/2012 [facility] Erythrocyte Sed 68 mm/Hr High 0-[address] [place] [address] [phone] Laboratory 04/23/2012 [facility] Uric Acid 8.5 mg/dL High 2.6- 7.2 [place] [address] [phone] C Reactive Protein 5.7 mg/dL High Less than 0.5 Basic Metabolic Panel 04/23/2012 [facility] Sodium 137 mmol/L 133-145 [address] [place] [address] [phone] Potassium 4.7 mmol/L 3.5-5.0 Chloride 102 mmol/L 101-111 Co2 Carbon Dioxide 26.0 mmol/L 22-32 Anion Gap 9.0 mmol/L 2-11 Glucose 121 mg/dL High 70-100 Blood Urea Nitrogen 18 mg/dL 6-24 Creatinine 1.30 mg/dL 0.50-1.40 BUN/Creatinine Ratio 13.8 8-20 Calcium 9.6 mg/dL 8.1-9.9 Egfr Non- 55.4 >60 Egfr 71.3 >60 38 Basic Metabolic Panel 04/04/2012 [facility] Sodium 138 mmol/L 133-145 [address] [place] [address] [phone] Potassium 3.5 mmol/L 3.5-5.0 Chloride 106 mmol/L 101-111 Co2 Carbon Dioxide 25.0 mmol/L 22-32 Anion Gap 7.0 mmol/L 2-11 Glucose 109 mg/dL High 70-100 Blood Urea Nitrogen 16 mg/dL 6-24 Creatinine 1.00 mg/dL 0.50-1.40 BUN/Creatinine Ratio 16.0 8-20 Calcium 8.1 mg/dL 8.1-9.9 Egfr Non- 75.0 >60 Egfr 96.4 >60 39 Laboratory test 04/04/2012 [facility] Inr 3.89 High 0.87-0.97 40 finding [address] [place] [address] [phone] Laboratory test 03/14/2012 [facility] Inr 3.19 High 0.82-1.17 41 finding [address] [place] [address] [phone] Basic Metabolic 03/14/2012 [facility] Sodium 139 mmol/L 133- 145 Panel [address] [place] [address] [phone] Potassium 4.4 mmol/L 3.5-5.0 Chloride 105 mmol/L 101-111 Co2 Carbon Dioxide 26.0 mmol/L 22-32 Anion Gap 8.0 mmol/L 2-11 Glucose 115 mg/dL High 70-100 Blood Urea Nitrogen 21 mg/dL 6-24 Creatinine 1.10 mg/dL 0.50-1.40 BUN/Creatinine Ratio 19.1 8-20 Calcium 9.0 mg/dL 8.1-9.9 Egfr Non- 67.2 >60 Egfr 86.4 >60 42 Laboratory test 03/05/2012 [facility] Inr 1.57 High 0.82-1.17 43 finding [address] [place] [address] [phone] Comp Metabolic 03/05/2012 [facility] Sodium 138 mmol/L 133- 145 Panel [address] [place] [address] [phone] Potassium 4.8 mmol/L 3.5-5.0 Chloride 103 mmol/L [...] Egfr 32.0 >60 44 Laboratory test 03/05/2012 [facility] Magnesium 2.7 mg/dL High 1.7-2.6 finding [address] [place] [address] [phone] TSH (Thyroid Stimulating Horm) 2.92 miu/mL 0.34-5.60 CBC No Diff 01/29/2012 [facility] White Blood 5.4 10^3/uL 4.8 -10.[address] [place] [address] [phone] Red Blood Count 4.03 10^6/uL 4.0-5.4 Hemoglobin 13.0 g/dL Low 14.0-18.0 Hematocrit 37 % Low 42-52 Mean Corpuscular Volume 93 fL 80-94 Mean Corpuscular Hemoglobin 32 pg High 27-31 Mean Corpuscular HGB Conc 35 g/dL 31-36 Red Cell Distribution Width 14 % 10.5-15 Platelet Count 185 10^3/uL 150-450 Mean Platelet Volume 8 um3 7.4-10.4 Laboratory test 01/29/2012 [facility] Inr 3.00 High 0.82-1.17 45 finding [address] [place] [address] [phone] Comp Metabolic 01/29/2012 [facility] Sodium 135 mmol/L 133- 145 Panel [address] [place] [address] [phone] Potassium 4.6 mmol/L 3.5-5.0 Chloride 102 mmol/L [...] Egfr 65.4 >60 46 Lipid Profile 01/29/2012 [facility] Triglycerides 315 mg/dL High 40-200 (Trig/Chol/HDL) [address] [place] [address] [phone] Cholesterol 203 mg/dL High Less than 200 HDL Cholesterol 39 mg/dL Low 40-60 47 Cholesterol/HDL Ratio 5.2 AVERAGE High 1-4.44 LDL Cholesterol 101.0 mg/dL High Less Than 100 48 Laboratory test 01/29/2012 [facility] TSH (Thyroid 1.63 0.34- 5.[address] Stimulating MIU/ML [address]) [phone] 1 Because ethnic data is not always [...] 10 HOUR Copy Result to: NATALIE MERRITT ([id number]) [id number] FASTING 10 HOUR Copy Result to: NATALIE MERRITT ([id number]) [id number] 8 Because ethnic data is not always [...] 5 Kidney failure <15 (or dialysis) 10 [id number] Copy Result to: NATALIE MERRITT ([id number]) 11 [id number] Copy Result to: NATALIE MERRITT ([id number]) 12 [id number] Copy Result to: NATALIE MERRITT ([id number]) 13 Because ethnic data is not always [...] 5 Kidney failure <15 (or dialysis) 14 [id number] Copy Result to: NATALIE MERRITT ([id number]) 15 [id number] Copy Result to: NATALIE MERRITT ([id number]) 16 [id number] Copy Result to: NATALIE MERRITT ([id number]) 17 [id number] Copy Result to: NATALIE MERRITT ([id number]) 18 Because ethnic data is not always [...] dialysis) 20 Copy Result to: LAN GOMEZ ([id number]) 21 Because ethnic data is not always [...] dialysis) 22 Copy Result to: NATALIE MERRITT ([id number]) 23 Copy Result to: NATALIE MERRITT ([id number]) 24 Copy Result to: NATALIE MERRITT ([id number]) 25 Copy Result to: NATALIE MERRITT ([id number]) 26 Because ethnic data is not always [...] dialysis) 27 Copy Result to: NATALIE MERRITT ([id number]) 28 CALL RESULTS TO 4591 29 Because [...] <15 (or dialysis) 30 CALL RESULTS TO 01 31 ORDERED BY NADIA ABRAMS FAX: [phone] 32 ORDERED BY NADIA ABRAMS FAX: [phone] 33 Because ethnic data is not always [...] <15 (or dialysis) 37 Test Performed by: [place] [address] Door Repairer Bus: Javier Norris III, M.D. 38 Because ethnic [...] MG/DL Procedures Date Code Description Status 08/28/2018 63444 EKG Tracing & Interpretation Completed 04/07/2018 60252 Diffusing Capacity Completed 04/07/2018 87964 Plethysmography Determination Lung Volumes & Per Airway Completed Resist 03/25/2018 61175 EKG Tracing & Interpretation Completed 03/10/2018 26265 ECHO Transthoracic, Real-Time 2D With Doppler And Color Completed Flow 03/10/2018 98471 ECHO Transthoracic, Real-Time 2D With Doppler And Color Completed Flow 08/09/2017 33277 EKG Tracing & Interpretation Completed 06/21/2017 69198 Pulmonary Function><Bronchodil Completed 06/21/2017 78736 Plethysmography Determination Lung Volumes & Per Airway Completed Resist 06/21/2017 86488 Diffusing Capacity Completed 10/09/2016 67184 EKG Tracing & Interpretation Completed 10/04/2016 89071 Moderate Sedation Services; Same Phys Intl 15 Mins; PT >=5 Completed Years 10/04/2016 37810 EKG, Interpretation Only Completed 10/04/2016 89901 Cardioversion Completed 08/23/2016 03097 EKG Tracing & Interpretation Completed 08/08/2016 55536 EKG, Interpretation Only Completed 08/08/2016 71263 Cardioversion Completed 08/03/2016 56851 EKG Tracing & Interpretation Completed 04/10/2016 90954 EKG Tracing & Interpretation Completed 10/17/2015 13568 EKG Tracing & Interpretation Completed 07/11/2015 44550 EKG Tracing & Interpretation Completed 04/27/2015 91891 Polysomnography Sleep Staging 4+ Parameters Completed 04/13/2015 33210 ECHO Transthoracic, Real-Time 2D With Doppler And Color Completed Flow 03/14/2015 96052 EKG Tracing & Interpretation Completed 02/04/2015 92607 EKG Tracing & Interpretation Completed 01/15/2015 16763 EKG, Interpretation Only Completed 01/14/2015 07645 EKG, Interpretation Only Completed 01/13/2015 48245 EKG, Interpretation Only Completed 01/13/2015 94787 Cardioversion Completed 01/12/2015 65117 EKG, Interpretation Only Completed 01/12/2015 97891 EKG, Interpretation Only Completed 01/11/2015 48156 EKG, Interpretation Only Completed 01/10/2015 46334 EKG Tracing & Interpretation Completed 01/05/2015 14279 EKG Tracing & Interpretation Completed 12/29/2014 89168 Cardioversion Completed 12/29/2014 36265 EKG, Interpretation Only Completed 12/21/2014 27840 EKG Tracing & Interpretation Completed 12/16/2014 15393 Color Flow Doppler/Interp & Reprt Completed 12/16/2014 45490 Pulse Wave/Continuous-Interp.RPT Completed 12/16/2014 66264 Echocardiography, Transesophageal, Real Time W/Image 2D Completed W/W/O M-M 12/16/2014 11715 EKG, Interpretation Only Completed 12/16/2014 51589 Cardioversion Completed 12/14/2014 39096 EKG Tracing & Interpretation Completed 06/22/2014 30069 EKG Tracing & Interpretation Completed 02/19/2014 37348 EKG Tracing & Interpretation Completed 02/11/2014 23093 EKG, Interpretation Only Completed 02/11/2014 50952 Cardioversion Completed 02/04/2014 48734 Cardioversion Completed 02/03/2014 22784 ECHO Transthoracic, Real-Time 2D With Doppler And Color Completed Flow 02/01/2014 41708 EKG Tracing & Interpretation Completed 06/26/2013 54346 EKG Tracing & Interpretation Completed 06/16/2013 69643 Myocardial Perfusion Imaging Tomographic (Spect) Multiple Completed Studies 06/16/2013 10216 Stress Test Completed 06/08/2013 03763 EKG Tracing & Interpretation Completed 12/31/2012 15057 EKG Tracing & Interpretation Completed 07/23/2012 74155 EKG Tracing & Interpretation Completed 07/10/2012 69494 EKG, Interpretation Only Completed 07/10/2012 21546 Cardioversion Completed 07/01/2012 82729 EKG Tracing & Interpretation Completed 04/23/2012 84211 EKG Tracing & Interpretation Completed 04/07/2012 36846 EKG Tracing & Interpretation Completed 04/04/2012 20276 Cardioversion Completed 04/04/2012 43733 EKG, Interpretation Only Completed 04/02/2012 99864 EKG Tracing & Interpretation Completed 03/14/2012 05062 Color Flow Doppler/Interp & Reprt Completed 03/14/2012 17346 Pulse Wave/Continuous-Interp.RPT Completed 03/14/2012 59941 Echocardiography, Transesophageal, Real Time W/Image 2D Completed W/W/O M-M 03/14/2012 45113 EKG, Interpretation Only Completed 03/14/2012 75345 Cardioversion Completed 03/11/2012 20118 EKG Tracing & Interpretation Completed Encounters Type Date Location Provider Dx Diagnosis Office Visit 08/28/2018 [facility] Calista Rodriguez, I48.0 Paroxysmal atrial 1:00p Of [facility] fibrillation I71.2 Thoracic aortic aneurysm, without rupture I10 Essential (primary) hypertension E78.5 Hyperlipidemia, unspecified Z01.810 Encounter for preprocedural cardiovascular examination Office Visit 03/25/2018 9:00a [facility] Natalie Merritt I48.0 Paroxysmal atrial Of [facility] M.D. fibrillation I10 Essential (primary) hypertension I71.2 Thoracic aortic aneurysm, without rupture R00.1 Bradycardia, unspecified Office Visit 08/09/2017 8:20a [facility] Natalie Merritt I48.0 Paroxysmal atrial Of [facility] AT [facility] M.D. 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 fibrillation I10 Essential (primary) hypertension G47.33 Obstructive sleep apnea (adult) (pediatric) Office Visit 10/09/2016 9:30a [facility] Cassie Wang I48.0 Paroxysmal atrial Of [facility] [place] fibrillation I10 Essential (primary) hypertension G47.33 Obstructive sleep apnea (adult) (pediatric) Office Visit 08/23/2016 8:20a [facility] Natalie Merritt I48.0 Paroxysmal atrial Of [facility] AT [facility] M.D. fibrillation I10 Essential (primary) hypertension G47.33 Obstructive sleep apnea (adult) (pediatric) Office Visit 08/03/2016 11:20a [facility] Natalie Merritt I48.0 Paroxysmal atrial Of [facility] AT [facility] M.D. fibrillation I10 Essential (primary) hypertension Office Visit 04/10/2016 10:45a [facility] Natalie Merritt I48.0 Paroxysmal atrial Of [facility] M.D. fibrillation I10 Essential (primary) hypertension G47.33 Obstructive sleep apnea (adult) (pediatric) Z68.39 Body mass index (BMI) 39.0-39.9, adult Office Visit 10/17/2015 9:00a [facility] Natalie Merritt I48.0 Paroxysmal atrial Of [facility] M.D. fibrillation I10 Essential (primary) hypertension G47.33 Obstructive sleep apnea (adult) (pediatric) Z68.34 Body mass index (BMI) 34.0-34.9, adult Office Visit 07/11/2015 8:15a [facility] Natalie Merritt I48.0 Paroxysmal atrial Of [facility] M.D. fibrillation I10 Essential (primary) hypertension G47.33 Obstructive sleep apnea (adult) (pediatric) Z68.34 Body mass index (BMI) 34.0-34.9, adult E66.09 Other obesity due to excess calories Office Visit 05/26/2015 8:30a [facility] G47.33 Obstructive sleep [facility] apnea (adult) [facility] (pediatric) E66.09 Other obesity due to excess calories Office Visit 04/06/2015 11:00a [facility] G47.9 Sleep disorder, [facility] unspecified [facility] E66.09 Other obesity due to excess calories I48.0 Paroxysmal atrial fibrillation Office Visit 03/14/2015 9:45a [facility] Natalie Merritt I48.0 Paroxysmal atrial Of [facility] M.D. fibrillation M10.00 Idiopathic gout, unspecified site I42.8 Other cardiomyopathies Office Visit 02/04/2015 10:45a [facility] Natalie Merritt I48.0 Paroxysmal atrial Of [facility] M.D. fibrillation Z79.01 care home (current) use of anticoagulants Office Visit 01/15/2015 11:19a [facility] Wei Pickering I48.0 Paroxysmal atrial Of [facility] Brand, M.D. fibrillation Office Visit 01/14/2015 1:11p [facility] Peña Acosta I48.0 Paroxysmal atrial Mauser, M.D. fibrillation Office Visit 01/13/2015 2:34p [facility] Natalie Merritt I48.0 Paroxysmal atrial Of [facility] M.D. fibrillation Office Visit 01/12/2015 10:22a [facility] Natalie Merritt I48.0 Paroxysmal atrial Of [facility] M.D. fibrillation Office Visit 01/05/2015 3:30p [facility] Natalie Merritt I48.0 Paroxysmal atrial Of [facility] M.D. fibrillation R94.31 Abnormal electrocardiogram [ECG] [EKG] Office Visit 12/22/2014 2:00p [facility] Natalie Merritt I48.1 Persistent atrial Of [facility] M.D. fibrillation I10 Essential (primary) hypertension Office Visit 12/14/2014 10:00a [facility] Natalie Merritt I48.0 Paroxysmal atrial Of [facility] M.D. fibrillation I10 Essential (primary) hypertension R00.2 Palpitations Office Visit 06/22/2014 9:00a [facility] Natalie Merritt 427.31 Atrial Cardiology Of M.D. Fibrillation [facility] 401.9 Hypertension Unspec 785.1 Palpitations 272.4 Hyperlipidemia Other Unspec Office Visit 02/19/2014 9:00a [facility] Natalie Merritt 427.31 Atrial Cardiology Of M.D. Fibrillation [facility] Office Visit 02/01/2014 8:30a NADIA Rivera 427.31 Atrial Cardiology Of Fibrillation [facility] 401.9 Hypertension Unspec 785.1 Palpitations 278.00 Obesity Unspec Office Visit 07/29/2013 8:30a [facility] Cassie Wang 401.9 Hypertension Unspec Of [facility] [place] 427.31 Atrial Fibrillation 278.00 Obesity Unspec Office Visit 06/26/2013 9:00a [facility] Natalie Merritt 401.9 Hypertension Of [facility] M.D. Unspec 427.31 Atrial Fibrillation 794.39 Cardiovascular Study Other Abnormal Office Visit 06/08/2013 8:45a [facility] Natalie Merritt 427.31 Atrial Cardiology Of M.D. Fibrillation Epic Professional 401.9 Hypertension Unspec 794.31 Electrocardiogram (ECG) (EKG) Abnormal Office Visit 12/31/2012 9:45a [facility] Natalie Merritt, 401.9 Hypertension Of [facility] Professional M.D. Unspec 427.31 Atrial Fibrillation 785.1 Palpitations Office Visit 09/10/2012 8:45a [facility] Natalie Merritt 427.31 Atrial Cardiology Of M.D. Fibrillation [facility] Professional 401.9 Hypertension Unspec Office Visit 07/23/2012 11:30a [facility] Natalie Merritt 427.31 Atrial Cardiology Of M.D. Fibrillation [facility] Professional 785.1 Palpitations 786.09 Dyspnea & Respiratory Abnormalities Other 401.9 Hypertension Unspec Office Visit 07/01/2012 8:15a Rukhsana Merritt 427.31 Atrial Cardiology Of M.D. Fibrillation [facility] Professional 401.9 Hypertension Unspec 278.00 Obesity Unspec Office Visit 04/23/2012 8:45a [facility] Natalie Merritt 427.31 Atrial Cardiology Of M.D. Fibrillation [facility] Professional 427.61 Premature Beats Supraventricular Office Visit 04/07/2012 9:30a [facility] Nurse Visit 427.31 Atrial Fibrillation Of [facility] IC Office Visit 04/02/2012 8:45a [facility] Natalie 427.31 Atrial Fibrillation Of [facility] Elaine Merritt 782.3 Edema 401.9 Hypertension Unspec Office Visit 03/11/2012 4:30p [facility] Natalie Merritt 427.31 Atrial Cardiology Of M.D. Fibrillation [facility] Professional 401.9 Hypertension Unspec 786.09 Dyspnea & Respiratory Abnormalities Other Plan of Treatment Future Appointment(s):09/19/2018 8:30 am - NADIA Valle at [facility]09/19/2018 8:30 am - Ezra Harrison M.D. at [facility]09/19/2018 8:30 am - Rashad Almonte MD at [facility]09/11/2018 - Rashad Almonte, MDM16.11 Unilateral primary osteoarthritis, right hipFollow up:Follow up: to OR
[2018-09-19] MEDS ORDERED: Gabapentin CAP(*) 300 MG ONE (06:55)
[2018-09-19] MEDS ORDERED: Buffered Lidocaine 1% SYRIN* 1 ML/SYRINGE INTRADERM ONE (06:56)
[2018-09-19] MEDS ORDERED: Acetaminophen TAB* 325 MG ONE (06:56)
[2018-09-19] MEDS ORDERED: ceFAZolin 2 GM in NS PREMIX(*) 2 GM/100 ML BAG IVPB ONE (06:56)
[2018-09-19] MEDS ORDERED: fentaNYL* 50 MCG/ML 2 ML VIAL (100 MCG VIAL) ONE (08:01)
[2018-09-19] MEDS ORDERED: Midazolam* 1 MG/ML 2 ML VIAL (2 MG) ONE ×2 (08:02→08:56)
[2018-09-19] MEDS ORDERED: Famotidine IV* 10 MG/ML 2 ML (20 mg) ONE (08:14)
[2018-09-19] MEDS ORDERED: Ropivacaine (OR use only) 2 MG/ML 10 ML ONE (08:15)
[2018-09-19] MEDS ORDERED: EPHEDrine (Pressors)* 50 MG/ML VIAL ONE (09:31)
[2018-09-19] MEDS ORDERED: Propofol* 10 MG/ML 20 ML BTL ONE ×2 (09:32→11:26)
[2018-09-19] MEDS ORDERED: Hetastarch 6% in NS* 500 ML IV ONE (09:49)
[2018-09-19] MEDS ORDERED: Lidocaine 2% PF * 5 ML VIAL ONE (10:21)
[2018-09-19] MEDS ORDERED: Dexamethasone IV* 4 MG/ML 1 ML (4 MG) ONE (10:21)
[2018-09-19] MEDS ORDERED: Acetaminophen IV 1GM/100ML * 100 ML ONE (11:28)
[2018-09-19] MEDS ORDERED: Ondansetron INJ* 2 MG/ML VIAL IV PRN ×2 (11:44→12:16)
[2018-09-19] MEDS ORDERED: Naloxone* 0.4 MG/ML 1 ML VIAL IV PRN (11:44)
[2018-09-19] MEDS ORDERED: fentaNYL* 50 MCG/ML 2 ML VIAL (100 MCG VIAL) IV PRN (11:44)
[2018-09-19] MEDS ORDERED: HYDROcodone/ACETAMIN 5-325 MG* 1 TAB PO PRN (11:44)
[2018-09-19] MEDS ORDERED: DiMENhydriNATE IV* 50 MG/ML VIAL IV PUSH PRN (11:44)
[2018-09-19] MEDS ORDERED: diPHENhydraMINE IV* 50 MG/ML 1 ml VIAL (BENADRYL) IV PRN ×2 (11:44→12:16)
[2018-09-19] MEDS ORDERED: Bupivacaine 0.25% W/EPI* 10 ML SDV ONE ×2 (11:57→11:59)
[2018-09-19] MEDS ORDERED: diPHENhydraMINE PO* 25 MG PO PRN (12:16)
[2018-09-19] MEDS ORDERED: Morphine 4 MG/ML VIAL (1 ml) 4 MG/ML VIAL IV PRN (12:16)
[2018-09-19] MEDS ORDERED: Magnesium Hydroxide LIQ* 30 ML UDC PO PRN (12:16)
[2018-09-19] MEDS ORDERED: oxyCODONE/Acetamin 5/325 MG* TAB PO PRN (12:16)
[2018-09-19] MEDS ORDERED: Colchicine* 0.6 MG TAB PO PRN (12:29)
[2018-09-19] MEDS: oxyCODONE/Acetamin 5/325 MG* TAB PO PRN ×2 (15:28→20:07)
[2018-09-19] MEDS ORDERED: Warfarin TAB(*) 4 MG PO ONE (17:00)
[2018-09-19] MEDS: ceFAZolin 1 GM ADVAN(*) 1 GM in NS 0.9% 50 ML* 50 ML IVPB SCH (17:28)
[2018-09-19] MEDS: Diltiazem CD CAP* 120 MG PO SCH (17:29)
[2018-09-19] MEDS: CMCS:Pravastatin (NF) 20 MG TAB PO SCH (17:29)
[2018-09-19] MEDS: Carvedilol TAB* 25 MG PO SCH (20:07)
[2018-09-19] MEDS: Docusate CAP* 100 MG PO SCH (20:07)
[2018-09-19] MEDS: Magnesium Hydroxide LIQ* 30 ML UDC PO SCH (20:07)
[2018-09-19] MEDS: [UNRECOGNIZED DRUG - OTHER] PO SCH (20:13)
[2018-09-19] MEDS: Acetaminophen TAB* 325 MG PO SCH (22:03)
[2018-09-20] MEDS: ceFAZolin 1 GM ADVAN(*) 1 GM in NS 0.9% 50 ML* 50 ML IVPB SCH ×2 (02:11→10:08)
[2018-09-20] MEDS: oxyCODONE/Acetamin 5/325 MG* TAB PO PRN ×4 (05:38→18:18)
[2018-09-20] MEDS: Acetaminophen TAB* 325 MG PO SCH ×3 (05:39→23:18)
[2018-09-20 06:55] LABS: Hematocrit 29 % (42-52); Mean Platelet Volume 7.9 fL (7.4-10.4); Platelet Count 131 10^3/uL (150-450)
[2018-09-20 07:09] LABS: BUN/Creatinine Ratio 18.1 (8-20); Calcium 8.1 mg/dL (8.6-10.3); EGFR African American 129.8 (>60); EGFR Non-African American 107.3 (>60); Potassium 4.4 mmol/L (3.5-5.0)
--- NOTE | 2018-09-20 08:04 | PN ---
Progress Note - Progress Note Date of Service: 09/20/18 SOAP: Subjective: Some pain R hip. Objective: Comfortable-looking. RLE: - Dressing c/d/i - NVID Xrays: show implants in place no fracture Selected Entries 09/20/18 03:13 Temperature 98.3 F Pulse Rate 54 Respiratory 16 Rate Blood Pressure 107/54 (mmHg) O2 Sat by Pulse 97 Oximetry Laboratory Tests 09/20/18 06:20 Hct 29 L Assessment: POD 1 R CL[place] Plan: - PT/OT - Pain control - Dispo planning - Posterior hip precautions - Yesterday's xrays included only R hip films. I will order an AP pelvis - On pre-op chronic Coumadin dosing with bridge with Lovenox
[2018-09-20] MEDS: Amiodarone TAB* 200 MG PO SCH (09:25)
[2018-09-20] MEDS: Carvedilol TAB* 25 MG PO SCH ×2 (09:26→20:56)
[2018-09-20] MEDS: Docusate CAP* 100 MG PO SCH ×2 (09:26→20:56)
[2018-09-20] MEDS: Allopurinol TAB* 300 MG PO SCH (09:27)
[2018-09-20] MEDS: [UNRECOGNIZED DRUG - OTHER] PO SCH ×2 (10:00→23:08)
[2018-09-20] MEDS ORDERED: oxyCODONE TAB* 5 MG TAB PO PRN (11:31)
[2018-09-20] MEDS: Magnesium Hydroxide LIQ* 30 ML UDC PO SCH ×2 (12:08→20:57)
[2018-09-20] MEDS: Enoxaparin(*) 30 MG/0.3 ML SYR SUBCUT SCH (12:09)
[2018-09-20] MEDS ORDERED: Warfarin TAB(*) 4 MG PO ONE (17:00)
[2018-09-20] MEDS ORDERED: Warfarin TAB(*) 4 MG PO SCH (17:00)
[2018-09-20] MEDS: Diltiazem CD CAP* 120 MG PO SCH (17:09)
[2018-09-20] MEDS: CMCS:Pravastatin (NF) 20 MG TAB PO SCH (17:10)
[2018-09-21] MEDS: oxyCODONE/Acetamin 5/325 MG* TAB PO PRN ×3 (00:53→12:43)
--- NOTE | 2018-09-21 04:44 | OP ---
DATE OF OPERATION: 09/19/18 - ROOM #350 DATE OF : 47 SURGEON: Rashad Almonte MD ASSISTANTS: Dr. Ezra Harrison and NADIA Valle. ANESTHESIOLOGIST: Dr. Francoise Adam. ANESTHESIA: Spinal anesthesia, local anesthesia with approximately 20 cc of Marcaine 0.5% with epinephrine. PRE-OP DIAGNOSIS: Right hip osteoarthritis. POST-OP DIAGNOSIS: Right hip osteoarthritis. OPERATIVE PROCEDURE: Right total hip arthroplasty. ANTIBIOTICS: Ancef 2 g IV. IV FLUIDS: See anesthesia notes. ESTIMATED BLOOD LOSS: 150 to 200 cc. SPECIMEN: Femoral head and neck sent to Pathology. IMPLANTS: Deepika implants. Continuum cup, with cluster holes, 54 mm. Polyethylene liner with elevated rim. Metal femoral head size 36mm with a +0 neck length. M/L taper extended offset femoral steam, size 9. One screw placed through the cup, 6.5mm x 30mm. COMPLICATIONS: None. INDICATIONS OF PROCEDURE: The patient is a 73-year-old man, retired construction field engineer, who had his left total hip arthroplasty performed 10 years in [place]. He presented to my office with pain about the right hip for 1.5 years. He also has some lower back pain. The patient and I spoke about nonoperative management including hip joint cortisone injection, but the patient was eager for surgery given the duration and intensity of his symptoms. Discussed risks and potential complications of surgery with the patient and his including bleeding, infection, nerve or blood vessel injury, blood clot, failure of hardware, need for revision surgery, leg length discrepancy. The patient felt that his lower extremities were of equal length after his prior contralateral left total hip arthroplasty surgery. I asked him this in preoperative holding. DESCRIPTION OF PROCEDURE: In preoperative holding the patient signed a written consent. Operative extremity was marked in preoperative holding. The patient was taken back to the operating room. In the operating room with the patient seated, Anesthesiology performed a spinal anesthetic block. The patient was then placed in a lateral decubitus position with the right side up on a pegboard. Axillary roll was placed. Four pegs were applied. Nonsterile U- drape was applied and a 1010 drape above draping out the right hip. Prior to the patient being placed in the lateral decubitus position, a Lafleur catheter was placed by nursing. Prep and drape was performed. A surgical time-out performed. Standard skin incision made for posterior Brooke approach to the right hip. Changed knives and dissected down to the fascial layer. I cleared some gluteus isa and iliotibial band fascia off with an osteotome. I then abducted the hip, incised the fascial layer from distal to proximal, proximal, in line with the fibers of gluteus isa muscle. I next split that muscle proximally with my fingers. I extended and internally rotated the right hip. I removed bursa with sponge as well as with Bovie. Dissected down onto the external rotators. Identified piriformis. I placed a Cobra between the hip abductors and the superior capsule for improved exposure. I placed a tagging stitch in the piriformis with FiberWire # 2 suture. I next released the external rotators and the posterior capsule off the posterior femur with Bovie electrocautery. I next placed 3 additional stitches in the external rotators and the posterior capsule with FiberWire #2 stitches. Next, dislocated the right hip. Next, cut the femoral neck with an oscillating saw 1 fingerbreadth from the lesser trochanter. Placed retractors circumferentially above the acetabulum. Removed labrum with a deep knife. Used an osteotome to remove an inferior osteophyte towards the posterior side of the cotyloid notch. Removed the pulvinar with rongeur. Used a small reamer, 44 mm, to ream and medialize until I reached the medial wall at the base of the cotyloid notch. Used a guide to confirm the appropriate final position of the cup, 40 degrees of abduction and 20 degrees of anteversion. Next placed reamers going up by 2 mm and then by 1 mm to our final size of 54mm, reaming line to line. Excellent bleeding bone circumferentially. Impacted cup. I drilled and then placed one 30 mm screw into the posterior superior quadrant with adequate purchase. I placed a posterior offset polyethylene liner and impacted it. Placed sponge. I flexed, adducted, and internally rotated hip. I approached proximal femur with jimmy cutter, then canal finder, and then lateralizing reamer. Next used broaches, added a little bit of anteversion to the [place] anteversion of the proximal femur. With a solid broach in place, size 9, I trialed with an extended offset neck and head. I liked the stability of the hip and the leg lengths. I placed my final femoral implant, M/L taper extended offset. This implant sat several millimeters more proud than the final broach had. Retrialed several head sizes. Chose the neutral head. Irrigation. Final head placed. Stability of the hip was such that the hip could be flexed 90 degrees, adducted , and internally rotated at least 70 degrees until there was dislocation in the hip joint. Irrigation. Two drill holes made in the posterior proximal femur with a 2 mm drill bit. I placed five pairs of stitches through those two holes and tied down my external rotators to the femur with the hip fully extended and externally rotated. Irrigation. Closure of the fascial layer with running stitches using Ethibond 1 and Vicryl 0 suture. Irrigation. Closure of the subcutaneous tissue with buried simple stitches using Vicryl 0 and then Vicryl 2-0 suture. Closure of the skin with janie. I placed about 20 cc of local anesthetic into the subcutaneous and deeper tissues surrounding the skin incision. Xeroform, 4x4's, ABDs, foam tape. The patient was converted to the supine position, lightened of sedation, and taken to the PACU. DISPOSITION: The patient was admitted postoperatively for pain control and physical therapy and medical management. The patient was to start physical therapy later in the day on postoperative day zero. The patient's preoperative Coumadin was restarted and he was placed on a Lovenox bridge. IV and oral narcotics for pain control. Once the patient is discharged home, he will follow up with me in approximately 14 days postoperative. X-rays in the PACU of the right hip confirmed no periprosthetic fracture. Cup is in good position , has a screw. Femoral stem is in several degrees of varus. Unfortunately, an AP pelvis does not seem to be obtained, so difficult to assess limb length. [id number]/[facility] #: [id number] [facility] HOSPITALMelania
[2018-09-21] MEDS: Acetaminophen TAB* 325 MG PO SCH (05:51)
[2018-09-21 07:05] LABS: Hematocrit 27 % (42-52); Hemoglobin 9.2 g/dL (14.0-18.0); Mean Platelet Volume 7.3 fL (7.4-10.4); Platelet Count 126 10^3/uL (150-450)
[2018-09-21 07:13] LABS: INR 1.14 (0.82-1.09)
[2018-09-21] MEDS ORDERED: Furosemide TAB* 20 MG PO SCH (09:00)
[2018-09-21] MEDS: Allopurinol TAB* 300 MG PO SCH (09:09)
[2018-09-21] MEDS: Docusate CAP* 100 MG PO SCH (09:09)
[2018-09-21] MEDS: Carvedilol TAB* 25 MG PO SCH (09:09)
[2018-09-21] MEDS: Amiodarone TAB* 200 MG PO SCH (09:10)
[2018-09-21] MEDS: [UNRECOGNIZED DRUG - OTHER] PO SCH (09:11)
[2018-09-21] MEDS: Magnesium Hydroxide LIQ* 30 ML UDC PO SCH (09:11)
--- NOTE | 2018-09-21 11:08 | DS ---
Orthopedic Discharge Summary - Discharge Summary Date of Admission:09/19/18 Date of Discharge: 09/21/18 Date of Surgery: 09/19/18 Attending Orthopedic Provider: Dr. Almonte Pre-operative Diagnosis: Degenerative arthritis right hip Operative Procedure: Right total hip arthroplasty Disposition of Patient: home Condition of Patient: Staable History: CLAUDIA FELIX is a 73 year old M with years of increasingly severe right hip pain. Patient has failed conservative management and has elected to undergo a right total hip replacement Hospital Course: CLAUDIA was admitted to [facility] on 09/19/18. Patient underwent a right total hip replacement without complication followed by a brief recovery in PACU and transfer to the Short Stay Surgical Unit in stable condition. Our hospitalist service, physical therapy and occupational therapy also participated in this patients care. Post-op day 1: patient was alert and in no acute distress. Dressing was clean, dry and intact. Operative extremity dorsiflexion and plantarflexion intact, sensation intact to light touch distally, DP2+. Post-op day two: dressing was changed, incision was clean , dry and intact. Patient was deemed to be medically and orthopedically stable for discharge. Physical therapy goals were met. Home Medications Medication Instructions Recorded Confirmed Type Furosemide TAB* [Lasix TAB*] 20 mg PO EVERY OTHER DAY 03/14/12 09/19/18 History Acetaminophen TAB* [Tylenol TAB*] 650 mg PO Q6H PRN 08/07/16 09/19/18 History Warfarin TAB(*) [Coumadin TAB(*)] 3 - 4 mg PO SEE INSTRUCTIONS 08/07/16 History Amiodarone TAB* [Cordarone Tab*] 100 mg PO QAM 08/28/16 09/19/18 History Aspirin EC TAB* [Ecotrin EC Low 81 mg PO QAM 07/01/18 09/19/18 History Dose 81 MG*] Carvedilol TAB* [Coreg TAB*] 25 mg PO BID 07/01/18 09/19/18 History Colchicine* [Colcrys*] 0.6 mg PO DAILY PRN 07/01/18 09/19/18 History Glucosamine Sulfate 1,000 mg PO BID 07/01/18 09/19/18 History dilTIAZem HCl [Cartia Xt] 120 mg PO QPM 07/01/18 09/19/18 History Pravastatin Sodium 20 mg PO QPM 09/10/18 09/19/18 History Tadalafil [Cialis] 10 - 20 mg PO DAILY PRN 09/10/18 09/19/18 History Allopurinol TAB* [Zyloprim 300 MG 300 mg PO QAM 09/11/18 09/19/18 History TAB*] Docusate CAP* [Colace Cap*] 100 mg PO BID cap 09/21/18 Rx Enoxaparin(*) [Lovenox(*)] 40 mg SUBCUT Q24H 2 Days #2 syringe 09/21/18 Rx Warfarin TAB(*) [Coumadin TAB(*)] 3 mg PO Sierra@1700 tab 09/21/18 Rx oxyCODONE/Acetamin 5/325 MG* 1 tab PO Q4H PRN #42 tab MDD 6 09/21/18 Rx [Percocet 5/325 TAB*] He takes Coumadin daily for Afib and has resumed, he is not yet therapeutic so he will use 40 mg of Lovenox for two days for continued bridge with his usual coumadin dose. He self checks INR every and will do so on 09/25/18. results to PCP. Discharge Instructions following Orthopedic Surgery: Activity: * Weight Bearing as tolerated * Continue physical therapy and occupational therapy exercises as shown Hip replacements: Continue Hip Precautions- do not cross legs or bend greater than 90 degrees/squat Wound care: * OK to shower on post-op day 3, no bathing, swimming, or submerging wound. * Use gentle soap, pat dry. Cover with gauze, SUSAN wrap or tape. * Visiting home nurse to do wound checks. Call Orthopedic office for: * Increased drainage * Redness * Increased pain * Fever Go to ER with shortness of breath or chest pain. Diet: * Regular diet * Increase fluids and fiber to prevent constipation. * Continue to use stool softeners, call office if no bowel motion within 48 hours. Medications See Home Medication List in your packet for medications that you should take after discharge. DVT Prophylaxis: Resume your usual Coumadin dosages, take INR as usual on 09/25 Lovenox Dosin mg once a day for two days then discontinue Pain Control: Percocet Dosin/325 mg 1-2 tabs by mouth every 4-6 hours as needed for pain. Maximum of 10 tabs per day. Please note that Percocet contains Tylenol (acetaminophen). Maximum daily dose of Tylenol is 4000 mg from all sources. Antibiotics are required prior to any dental work. FOLLOW UP: Follow up with Dr. Almonte Within 10-14 days, call for appointment Please call our office with any questions or concerns ([phone])
[2018-09-21 11:32] VITALS: BP 124/50
[2018-09-21] MEDS: Enoxaparin(*) 30 MG/0.3 ML SYR SUBCUT SCH (12:44)
[2018-09-21] MEDS ORDERED: Warfarin TAB(*) 3 MG PO SCH (17:00)
== END 2018-09-21 13:00 | disposition home or self-care (01) | DRG 301 ==
LOC: AA 09-19 06:39 → SSU 09-19 13:58
PROVIDERS: ADMIT Orthopaedic Surgery; ATTEND Orthopaedic Surgery
PROC: 0SR902A Replacement of Right Hip Joint with Metal on Polyethylene Synthetic Substitute, Uncemented, Open Approach (ICD-10-PCS; principal; 2018-09-19 08:30)
DX: M16.11 Unilateral primary osteoarthritis, right hip (principal); I42.8 Other cardiomyopathies; I48.1 Persistent atrial fibrillation; G62.9 Polyneuropathy, unspecified; M15.9 Polyosteoarthritis, unspecified; Z96.642 Presence of left artificial hip joint; E66.9 Obesity, unspecified; M54.5 Low back pain; M25.751 Osteophyte, right hip; I10 Essential (primary) hypertension; G47.33 Obstructive sleep apnea (adult) (pediatric); I71.2 Thoracic aortic aneurysm, without rupture; I48.0 Paroxysmal atrial fibrillation; M10.00 Idiopathic gout, unspecified site; E78.5 Hyperlipidemia, unspecified; E78.00 Pure hypercholesterolemia, unspecified; Z87.442 Personal history of urinary calculi; Z79.01 Long term (current) use of anticoagulants; Z83.3 Family history of diabetes mellitus; Z82.49 Family history of ischemic heart disease and other diseases of the circulatory system; Z68.35 Body mass index [BMI] 35.0-35.9, adult; Z86.010 Personal history of colon polyps; Z82.3 Family history of stroke
CPT/HCPCS: 36415; 80048; 85014; 85018; 85049; 85610; 88304; 88311; A9270-GY; C1713; C1776; G8978-GP-CJ; G8987-GO-CJ; G8988-GO-CJ; G8989-GO-CJ; J0690; J1100; J1650; J2250; J2270; J2704; J2795; J3010